=== PATIENT | female | born 1950 | race Caucasian/White ===

== ENCOUNTER 2016-07-30 22:22 | Emergency (ER) | payer MEDICARE, OTHER ==
[2016-04-26 10:45] VITALS: BMI 41.0
[~2016-07-30 22:22] MED LIST: AMBIEN10 MG PO; ATIVAN1 MG PO; BACTRIM DS TABL1 TAB PO; COZAAR100 MG PO; CREON DR 6,0001 EACH PO; DEMEROL50 MG PO; DULCOLAX10 MG/SUPP RC; ELIQUIS2.5 MG PO; FLOVENT DI50 MCG/DIS INH; GLUCOPHAGE1000 MG PO; K-DUR20 MEQ PO; LANTUS INSULIN10 ML SC; LASIX40 MG PO; LASIX80 MG PO; LEXAPRO10 MG PO; LOMOTIL TABLET1 TAB PO; MIRALAX17 GM PO; NICODERM C1 PATCH .1 TD; NITROSTAT0.4 MG SL; NORVASC10 MG PO; NOVOLOG100 U/M1 SQ; NYAMYC60 GM TP; OMNICEF300 MG PO; PANCREAZE; PEPCID20 MG PO; PEPCID40 MG PO; PLAVIX75 MG PO; PRAVACHOL20 MG PO; PRAVACHOL40 MG PO; PREVACID30 MG PO; PROVENTIL HFA6.7 GM INH; PROZAC20 MG PO; SENOKOT-S TABLE1 TAB PO; SPIRIVA18 MCG INH; ULTRAM50 MG PO; VESICARE5 MG PO; ZOFRAN4 MG PO
== END 2016-07-30 23:30 | disposition home or self-care (01) ==
LOC: D.ER 22:22
DX: S40.012A Contusion of left shoulder, initial encounter (principal); W01.0XXA Fall on same level from slipping, tripping and stumbling without subsequent striking against object, initial encounter; Y93.89 Activity, other specified; Y92.019 Unspecified place in single-family (private) house as the place of occurrence of the external cause; I48.91 Unspecified atrial fibrillation; I50.9 Heart failure, unspecified; I10 Essential (primary) hypertension; K58.9 Irritable bowel syndrome, unspecified

== ENCOUNTER 2016-08-18 16:24 | Observation (INO) | payer MEDICARE, OTHER ==
[~2016-08-18] VITALS: Ht 160 cm; Wt 101.2 kg
[2016-08-18 17:14] LABS: BASOPHILS 0.9 % (0.0-2.0); HEMATOCRIT 35.2 % (36.0-48.0); HEMOGLOBIN 10.3 g/dL (12-16); IMMATURE GRANULOCYTES 0.2 % (0-5); LYMPHOCYTES 28.4 % (15-50); MCH 19.7 pg (26.0-34.0); MCHC 29.3 g/dL (31.0-37.0); MCV 67.2 fL (80.0-100.0); MEAN PLATELET VOLUME 9.2 fL (7.4-10.4); MONOCYTES 7.8 % (2-11); NEUTROPHILS 60.7 % (40-80); PLATELET COUNT 316 10x3/uL (130-400); RBC 5.24 10x6/uL (4.00-5.40); RDW 18.7 % (11.5-14.5); WBC 6.7 10x3/uL (4.8-10.8)
[2016-08-18 17:29] LABS: ALBUMIN 3.7 g/dL (3.4-5.0); ALKALINE PHOSPHATASE 107 U/L (46-116); ALT (SGPT) 22 U/L (10-68); BILIRUBIN - TOTAL 0.31 mg/dL (0.2-1.3); CALC OSMOLALITY 279 mosm/kg (275-300); CALCIUM 9.1 mg/dL (8.5-10.1); CARBON DIOXIDE 26.6 mmol/L (21.0-32.0); CHLORIDE - SERUM 99 mmol/L (98-107); CREATININE - SERUM 0.7 mg/dL (0.6-1.3); GLUCOSE 230 mg/dL (74-106); POTASSIUM - SERUM 3.6 mmol/L (3.5-5.1); PROTEIN - SERUM 7.7 g/dL (6.4-8.2); SODIUM 137 mmol/L (136-145); UREA NITROGEN 11 mg/dL (7-18); eGFR NON AFRICAN AMERICAN 89 mL/min (90-120)
[2016-08-18 17:53] LABS: CKMB 0.5 U/L (0.0-3.6); CREATINE KINASE 39 UL (21-215)
[2016-08-18 18:02] LABS: TROPONIN-I 0.096 ng/mL (0.000-0.060)
--- NOTE | 2016-08-18 20:45 | NUR ---
PT ARRIVED TO FLOOR VIA WHEELCHAIR FROM ER ACCOMPANIED BY NURSE. TELEMETRY PLACED ON PT, NSR ON MONITOR WITH OCCASIONAL PACER SPIKES NOTED. HR 71. VSS, AFEBRILE. DENIES ANY C/O PAIN ON ARRIVAL. O2 2LPM NC, SATS 96%. PT IS AMBULATORY. GIVEN SANDWICH PLATE. NO NEEDS VOICED. ADMISSION ASSESSMENT AND HISTORY COMPLETED. MEDICATIONS RECONCILED AT THE BEDSIDE. ACCU CHECK DONE AND RESULTED 233. COVERED WITH HUMALOG PER SS ORDERS. LANTUS HELD SINCE PT WILL BE NPO AFTER MIDNIGHT. PT INSTRUCTED ON BEING NPO AFTER MIDNIGHT AND VERBALIZES UNDERSTANDING. WILL CONT TO MONITOR.
[2016-08-18 21:19] VITALS: BP 156/66; BMI 39.5
[2016-08-19 01:08] LABS: CREATINE KINASE 37 UL (21-215)
[2016-08-19 01:10] LABS: TROPONIN-I 0.096 ng/mL (0.000-0.060)
[2016-08-19 01:20] VITALS: BP 146/63
[2016-08-19 04:33] VITALS: BP 152/71
[2016-08-19 06:16] LABS: CKMB 0.3 U/L (0.0-3.6); CREATINE KINASE 27 UL (21-215)
[2016-08-19 06:19] LABS: TROPONIN-I 0.078 ng/mL (0.000-0.060)
[2016-08-19 08:02] VITALS: BP 149/78
[2016-08-19 09:28] VITALS: Ht 160 cm; Wt 101.2 kg
[2016-08-19 11:09] VITALS: BP 176/80
--- NOTE | 2016-08-19 14:37 | NUR ---
DISCHARGE INSTRUCTIONS GIVEN AND PAPERS SIGNED. D/C PTS R.FA PIV WITH CATHETER TIP FULLY INTACT. RETURNED TELEMETRY. BELONGINGS COLLECTED. PT READY TO LEAVE WITH FAMILY. NO FURTHER NEEDS. WILL CTM.
--- NOTE | 2016-09-30 14:54 | DS ---
PATIENT:LENNIE VILLEGAS :50 MEDICAL RECORD: [id number] DISCHARGE SUMMARY ADMISSION DATE: 08/18/16 DISCHARGE DATE: 08/19/16 DATE OF ADMISSION: 08/18/2016 DATE OF DISCHARGE: 08/19/2016 ADMISSION DIAGNOSIS: Unstable angina. SECONDARY DIAGNOSES: 1. Coronary artery disease. 2. Hypertension. 3. Paroxysmal atrial fibrillation. HOSPITAL COURSE: Lennie is a 66-year-old woman, who presented a week prior with unstable angina. She underwent PTCA and stent in the right coronary artery. She returned having chest discomfort. She has had a lot of chronic discomfort after having multiple interventions. Her cath films were reviewed. Her pain resolved when she is placed back on her nitrates and Ranexa. After observation for 24 hours, she had no further pain. She is deemed stable discharge to home. MEDICATIONS ON DISCHARGE: Include: 1. Pravachol 40 mg a day. 2. Plavix 75 mg day. 3. Ranexa 500 mg twice daily. 4. Amlodipine 10 mg daily. 5. Losartan 100 mg daily. FOLLOWUP: We will see her back in clinic in approximately 2-3 weeks. TRANSINT:[id number] Voice Confirmation ID: [id number] DOCUMENT ID: [id number] LOVE TOLEDO M.D. at 1454 CC: [id number] DICTATION DATE: 09/29/16 0914 SURVEILLANCE CAMERA TECHNICIAN: 09/30/16 0058 DIS IN 08/19/16 [place] [address]
== END 2016-08-19 14:39 | disposition home or self-care (01) ==
LOC: D.ER 16:24 → OBSVTIME 19:46 → D.M2 19:46
PROVIDERS: Emergency Medicine; ADMIT Internal Medicine Cardiovascular Disease
DX: I25.110 Atherosclerotic heart disease of native coronary artery with unstable angina pectoris (principal); Z95.5 Presence of coronary angioplasty implant and graft; E11.40 Type 2 diabetes mellitus with diabetic neuropathy, unspecified; K76.0 Fatty (change of) liver, not elsewhere classified; I11.0 Hypertensive heart disease with heart failure; I50.9 Heart failure, unspecified; I48.0 Paroxysmal atrial fibrillation; E78.5 Hyperlipidemia, unspecified; J44.9 Chronic obstructive pulmonary disease, unspecified; Z95.0 Presence of cardiac pacemaker; Z72.0 Tobacco use

== ENCOUNTER 2016-11-04 16:08 | Inpatient (IN) | payer MEDICARE, OTHER ==
[~2016-11-04] VITALS: Ht 160 cm; Wt 103.9 kg
--- NOTE | ~2016-11-04 | CN ---
PATIENT NAME:CHANEL CARSON MEDICAL RECORD: [id number] : 50 LOCATION:D.MS [id number] ADMIT DATE: 11/04/16 ACCOUNT: [id number] CONSULTING PHYSICIAN: WOLF SERRANO MD REFERRING PHYSICIAN: MONTANA PUGA DO DATE OF CONSULTATION: 11/05/2016 CONSULT REQUESTING PHYSICIAN: [place] Puga DO. REASON FOR CONSULTATION: Pneumonia, left lower lobe; acute hypoxic respiratory failure and pleurisy. HISTORY OF PRESENT ILLNESS: Ms. Carson is a 66-year-old female who has a history of COPD and obstructive sleep apnea. According to the patient, she is sick since . She is coughing, she is wheezing, she has shortness of breath, she has left pleuritic type of chest pain. She also hears herself wheezing. She has shortness of breath with mild exertion. There was also some night sweating. REVIEW OF SYSTEMS: Mainly in the history of present illness. PAST MEDICAL HISTORY: 1. COPD. 2. Obstructive sleep apnea. 3. Diabetes mellitus. 4. Diabetic neuropathy. 5. Chronic backache. 6. History of psoriasis. 7. History of cardiac arrhythmia. 8. B12 deficiency. 9. Congestive heart failure. 10. Hypothyroidism. 11. History of chronic systolic hypertension. 12. Hyperlipidemia. ALLERGIES: SHE IS ALLERGIC TO CODEINE, WHICH CAUSE HER BLOOD PRESSURE LOW. SHE IS ALSO ALLERGIC TO LOPRESSOR, PENICILLIN AND TOPAMAX. PRESENT MEDICATIONS: On [employer] is reviewed. PERSONAL AND SOCIAL HISTORY: The patient is still an everyday smoker. She is a nondrinker. FAMILY HISTORY: Significant for heart diseases. PHYSICAL EXAMINATION: GENERAL: Now, the patient is lying comfortably. She is not in acute distress. VITAL SIGNS: The blood pressure is 113/71, pulse is 81, respirations 17, temperature 99.3 and SpO2 is 94% on BiPAP. HEENT: Conjunctivae are pink, sclerae nonicteric. NECK: Supple. No JVD. CHEST: The chest excursion is minimal on both sides. There is wheeze on forceful expiration. There are crackle at the left base. HEART: Rhythm regular, normal sound, no murmur. ABDOMEN: Soft. Bowel sounds present. No hepatosplenomegaly. CONSULT REPORT [id number] CHANEL CARSON RECTAL: Deferred. EXTREMITIES: No cyanosis, no clubbing. There is no pedal edema. SKIN: Warm, normal turgor. CENTRAL NERVOUS SYSTEM: The patient is a bit agitated; otherwise, there is no obvious cranial nerve abnormality. The gait was not tested. CHEST RADIOGRAPH: There are infiltrate in left mid lung and left lower lobe. LABORATORY DATA: CBC: The WBC is 15.1, hemoglobin 13.3, hematocrit 41.1 and the platelet count is 151. Chemistry: Sodium is 137, potassium 3.4, BUN is 8, creatinine is 0.6 and glucose is 251. IMPRESSION: 1. Acute hypoxic respiratory failure secondary to pneumonia. 2. Acute exacerbation of chronic obstructive pulmonary disease. 3. Pneumonia, left mid lung, left lower lobe consistent with community-acquired pneumonia. 4. Obstructive sleep apnea. 5. Pleurisy. 6. Chronic backache. 7. Leukocytosis. 8. Tobacco dependence syndrome. RECOMMENDATION: 1. Albuterol and ipratropium nebulizer. Start on Brovana and budesonide nebulizer. 2. Methylprednisolone IV. 3. Add Rocephin. 4. Followup labs and chest radiograph in the morning. 5. Continue BiPAP at the present settings. 6. Start her on nicotine patch. Dr. Puga, once again, thank you for involving me in the care of Ms. Carson. TRANSINT:[id number] Voice Confirmation ID: [id number] DOCUMENT ID: [id number] WOLF SERRANO MD CC: MONTANA PUGA DO [id number] DICTATION DATE: 11/05/16 143 ADMINISTRATIVE ANALYST: 11/05/162101 ADM IN [facility] [address] [place] [address]
--- NOTE | 2016-11-04 16:57 | NUR ---
REPORTS SHE DOESN'T TAKE MOST OF HER MEDICATIONS ANY MORE BECAUSE OF THE WAY THEY MAKE HER FEEL BUT COULDN'T GIVE AN ACCURATE ACCOUNT OF THE ONES SHE STILL TAKES OR HOW HER MEDICATIONS MAKE HER FEEL
[2016-11-04 17:51] VITALS: Ht 160 cm; Wt 103.9 kg
[2016-11-04 18:29] LABS: BASOPHILS 0.1 % (0-2); EOSINOPHILS 0 % (0-7); HEMATOCRIT 41.1 % (36.0-48.0); HEMOGLOBIN 13.3 g/dL (12-16); IMMATURE GRANULOCYTES 0.6 % (0-5); LYMPHOCYTES 8.5 % (15-50); MCH 26.4 pg (26.0-34.0); MCHC 32.4 g/dL (31.0-37.0); MCV 81.5 fL (80.0-100.0); MEAN PLATELET VOLUME 9.6 fL (7.4-10.4); MONOCYTES 9.5 % (2-11); NEUTROPHILS 81.3 % (40-80); RBC 5.04 10x6/uL (4.00-5.40); WBC 15.1 10x3/uL (4.8-10.8)
[2016-11-04 18:48] LABS: PLATELET COUNT 151 10x3/uL (130-400)
[2016-11-04 18:53] LABS: ALBUMIN 3.3 g/dL (3.4-5.0); ALKALINE PHOSPHATASE 92 U/L (46-116); ALT (SGPT) 25 U/L (10-68); BILIRUBIN - TOTAL 0.82 mg/dL (0.2-1.3); CALC OSMOLALITY 271 mosm/kg (275-300); CALCIUM 9.1 mg/dL (8.5-10.1); CARBON DIOXIDE 24.9 mmol/L (21.0-32.0); CHLORIDE - SERUM 95 mmol/L (98-107); CREATININE - SERUM 0.6 mg/dL (0.6-1.3); POTASSIUM - SERUM 4.4 mmol/L (3.5-5.1); PROTEIN - SERUM 7.2 g/dL (6.4-8.2); SODIUM 131 mmol/L (136-145); THYROID STIMULATING HORMONE 0.75 uIU/mL (0.36-3.74); UREA NITROGEN 8 mg/dL (7-18); eGFR NON AFRICAN AMERICAN > 90 mL/min (90-120)
[2016-11-04 18:54] LABS: GLUCOSE 300 mg/dL (74-106)
[2016-11-04 20:00] VITALS: BP 153/65
--- NOTE | 2016-11-04 20:17 | NUR ---
PATIENT RESTING IN BED WITH NO VISIBLE SIGNS OF DISTRESS. CHECKED PATIENT'S BLOOD GLUCOSE, RESULTS 302. NOTIFIED HALEY CHAKRABORTY OF BLOOD GLUCOSE LEVEL. PATIENT RESTING IN BED AND DENIES NEEDS AT THIS TIME. BED IN LOWEST POSITION AND CALL LIGHT WITHIN REACH. ENCOURAGED THE PATIENT TO CALL IF SHE HAS FURTHER NEEDS.
--- NOTE | 2016-11-04 20:50 | NUR ---
REC'D. ENTERED RM.SCREAMING OH!!! ASKED WHAT"S WRONG STATES I"VE GOT PNEUNOMIA.WILL CONTINUE TO MONITOR RESP. STATUS AND FOLLOW CURRENT PLAN OF CARE.
[2016-11-05] VITALS: BP 143/56
[2016-11-05 04:00] VITALS: BP 126/57
--- NOTE | 2016-11-05 07:40 | NUR ---
CPAP ON, NO DISTRESS NOTED, BREATHING EVEN UNLABORED, CALL LIGHT IN REACH, BED LOWEST POSITION, WILL CONTINUE TO MONITOR
[2016-11-05 09:01] LABS: BASOPHILS 0.1 % (0-2); EOSINOPHILS 0 % (0-7); HEMATOCRIT 40.1 % (36.0-48.0); HEMOGLOBIN 12.8 g/dL (12-16); IMMATURE GRANULOCYTES 0.4 % (0-5); LYMPHOCYTES 11.9 % (15-50); MCH 26.7 pg (26.0-34.0); MCHC 31.9 g/dL (31.0-37.0); MCV 83.5 fL (80.0-100.0); MONOCYTES 6.6 % (2-11); PLATELET COUNT 131 10x3/uL (130-400); WBC 11.3 10x3/uL (4.8-10.8)
--- NOTE | 2016-11-05 09:07 | HP ---
PATIENT: LENNIE VILLEGAS MEDICAL RECORD: [id number] ACCOUNT: [id number] LOCATION:D.MS [id number] : 50 ADMISSION DATE: 11/04/16 HISTORY AND PHYSICAL EXAMINATION HISTORY OF PRESENT ILLNESS: Lennie is a 66-year-old female who came to the office today for routine lab test and stated that she was feeling awful, short of breath, back pain, fever. In the course of evaluating her, she did have leukocytosis with left upper lobe infiltrate and diagnosis of pneumonia. She will be hospitalized for pneumonia, fever and IV antibiotics. Her HPI, she states she started feeling bad yesterday, prior to that has been doing okay. She has a history of COPD and uses home albuterol nebulizers. She has been hesitant to use steroids in the past as she states one time she used inhaled steroids and had pneumonia from that. She does have a history of coronary artery disease and stents in the past. She has a history of obstructive sleep apnea, diabetes with diabetic neuropathy, chronic back pain. She has a history of psoriasis, cardiac arrhythmia, B12 deficiency, hypothyroidism, history of congestive heart failure, chronic systolic hypertension, hyperlipidemia. ALLERGIES: CODEINE, WHICH CAUSED A DROP IN BLOOD PRESSURE, LOPRESSOR, PENICILLIN AND TOPAMAX. HOME MEDICATIONS: Include albuterol updrafts, amlodipine 10 mg daily, clopidogrel 75 mg daily, which has been on hold for several days due to her being set up for an EGD next week with GI, escitalopram 10 mg daily, Pepcid 40 mg daily, furosemide 80 mg daily, hydrocodone p.r.n., lansoprazole 30 mg daily, Lantus 30 units daily, levothyroxine 50 mcg daily, lorazepam 1 mg b.i.d. p.r.n., losartan 100 mg daily, ____ 2 tablets b.i.d., NovoLog p.r.n. sliding scale, pravastatin 40 mg daily, sotalol 80 mg b.i.d., Aldactone 50 mg daily, Ambien p.r.n. at bedtime 10 mg. SOCIAL HISTORY: She does unfortunately still smoke cigarettes. Denies any alcohol and heavy use. No illicit drug use. FAMILY HISTORY: Diabetes and heart disease in father. Mother with hypertension and mother also had adenoid cystic carcinoma. REVIEW OF SYSTEMS: HEENT: No visual or auditory changes, sore throat, rhinorrhea, dysphagia. CARDIOPULMONARY: She has had some pain in the left lateral chest area with deep inspiration. Left upper back pain. She has been a little short of breath on exertion, occasional cough. CONSTITUTIONAL: She has had a fever and some chills. GASTROINTESTINAL: Denies any nausea, vomiting, or diarrhea. Currently, does have chronic loose stools due to IBS and diabetic medication. GENITOURINARY: Denies any hematuria or dysuria. MUSCULOSKELETAL: Pain in her back, chronically in the low back, now in the upper back that has been bad for several days. PHYSICAL EXAMINATION: VITAL SIGNS: Her temperature was 102.3, respirations 20, pulse 80, O2 sat 94% on room air, blood pressure 122/60. HEENT: PERRLA, EOMI. Pharynx was clear. NECK: Supple. No JVD or adenopathy. HEART: Had an S1, S2. No murmurs or rubs. HISTORY AND PHYSICAL [id number] LENNIE VILLEGAS LUNGS: Had some rhonchi in the left mid and base with a few expiratory wheezes anteriorly. ABDOMEN: Soft, nontender, nondistended. EXTREMITIES: Had a trace nonpitting edema around the ankles. NEUROLOGICAL: Grossly intact. LABORATORY DATA: Her white count was 14.8 with H&H of 13 and 42. Chest x-ray showed left lobe infiltrate. ASSESSMENT AND PLAN: Pneumonia with history of chronic obstructive pulmonary disease. We are going to admit the patient, start on IV Levaquin. Blood cultures will be obtained as well as a D-dimer. Updraft treatments, restart home medications, diabetic meds with parameters. Consult pulmonary. Continue to follow clinically. TRANSINT:[id number] Voice Confirmation ID: [id number] DOCUMENT ID: [id number] MARÍA PUGA DO at 0907 CC: [id number] DICTATION DATE: 11/04/16 162 PAVING AND SURFACING LABOURER: 11/04/162004 ADM IN [facility] [address] [place] [id number]
[2016-11-05 09:15] LABS: CALCIUM 9.4 mg/dL (8.5-10.1); CARBON DIOXIDE 27.6 mmol/L (21.0-32.0); CHLORIDE - SERUM 102 mmol/L (98-107); CREATININE - SERUM 0.6 mg/dL (0.6-1.3); SODIUM 137 mmol/L (136-145); UREA NITROGEN 8 mg/dL (7-18); eGFR NON AFRICAN AMERICAN > 90 mL/min (90-120)
[2016-11-05 09:21] LABS: CALC OSMOLALITY 279 mosm/kg (275-300); GLUCOSE 251 mg/dL (74-106); POTASSIUM - SERUM 3.4 mmol/L (3.5-5.1)
[2016-11-05 09:57] VITALS: BP 113/71
--- NOTE | 2016-11-05 11:41 | NUR ---
REFUSES ALL MEDICATIONS EXCEPT PAIN MEDS, STATES SHE HAS TO PAIN OUT OF POCKET FOR IT AND SHE'S NOT TAKING IT, SHE ALSO STATED "THE REAL ESTATE ACCOUNTANT JOSE A WAS MEAN AND SAID "OH GOD!" AND COMPLAINING" I HAD THE REAL ESTATE ACCOUNTANT'S SWITCH A PATIENTS SO SHE HOPEFULLY WOULD BE HAPPIER WITH THE OTHER REAL ESTATE ACCOUNTANT. I FLUSHED HER IV EARLIER, TOLD HER IT WAS SAYING OCCLUDED ON PUMP BUT IT WAS JUST POSITIONAL, THEN SHE TOLD HER SON IT WASN'T WORKING AND WE WERE STILL USING IT, I CORRECTED HER AND SHE TOLD ME I WAS LYING. WILL CONTINUE TO MONITOR
[2016-11-05 12:31] VITALS: BP 145/75
[2016-11-05 16:50] VITALS: BP 136/66
[2016-11-05 20:00] VITALS: BP 142/69
--- NOTE | 2016-11-05 22:09 | NUR ---
REC'D.ASSISTED TO BATHRM.NABOR WELL. IN MUCH BETTER MOOD THIS PM WILL CONTINUE TO MONITOR FOR ANY CHGES. AND FOLLOW CURRENT PLAN OF CARE.REFUSES ORAL MEDS [facility] CHARGED ME SEVEN THOUSAND DOLLARS FOR MEDS LAST TIME I WAS HERE. WILL CONTINUE TO MONITOR FOR ANY CHGES. AND FOLLOW CURRENT PLAN OF CARE.
--- NOTE | 2016-11-06 02:45 | NUR ---
PT IS RESTING QUIET WITH BIPAP IN PLACE AND NO DISTRESS NOTED. BED IS LOW, RAILS UP X'S 2 WITH THE CALL LIGHT AT HAND.
[2016-11-06 04:00] VITALS: BP 144/77
--- NOTE | 2016-11-06 05:37 | NUR ---
UPON THIS NURSE ADMINISTERING AM MEDICATION TO PT SHE REFUSED TO TAKE PO MEDICATION STATING " I'M NOT TAKING THOSE PILLS. BECAUSE THEY ARE CHARGING ME TO MUCH FOR THEM. AND I HAVE TO TOLD THEM NOT TO BRING THEM IN TO ME CAUSE AM NOT TAKING THEM. " PT WAS C/O PAIN AROUND RIG CAGE RATING 9/10 ON PAIN SCALE. THIS NURSE TRIED TO EXPLAIN TO PT THE ABOUT THE IV MEDICATION THAT SHE WAS RECEIVING WHICH WAS SOLU-MEDROL 40 MG AND DEMEROL 25 MG BUT PT THEN BEGIN TO YELL AT THIS NURSE STATING I ASKED YOU WHEN THE LAST TIME THAT I HAD MEDICATION AND THIS NURSE THEN ASK PT WHICH MEDICATION SHE WAS SPEAKING OF. THEN PT STATED THAT THE STAFF IS TRYING TO MAKE HER CRAZY IN THE HEAD. BUT YOU ARE THE ONE'S THAT CRAZY AND AM GOING TO GIVE IT RIGHT BACK TO Y'ALL. PT WAS ALSO FOOLING AROUND WITH IV SITE. INFORMED PT IF SHE CONTINUE TO SCRATCH AT SITE THAT HE IV MAY BECOME INFILTRATED AND SHE WILL THEN NEED TO BE RESITED.
[2016-11-06 05:39] LABS: BASOPHILS 0.1 % (0-2); EOSINOPHILS 0 % (0-7); HEMOGLOBIN 12.8 g/dL (12-16); IMMATURE GRANULOCYTES 0.1 % (0-5); LYMPHOCYTES 10.3 % (15-50); MCV 84.4 fL (80.0-100.0); MEAN PLATELET VOLUME 9.7 fL (7.4-10.4); MONOCYTES 4.7 % (2-11); NEUTROPHILS 84.8 % (40-80); PLATELET COUNT 156 10x3/uL (130-400); RBC 4.74 10x6/uL (4.00-5.40); WBC 8.7 10x3/uL (4.8-10.8)
[2016-11-06 06:04] LABS: ALBUMIN 2.6 g/dL (3.4-5.0); ALKALINE PHOSPHATASE 91 U/L (46-116); ALT (SGPT) 21 U/L (10-68); CALCIUM 9.5 mg/dL (8.5-10.1); CARBON DIOXIDE 27.5 mmol/L (21.0-32.0); CHLORIDE - SERUM 101 mmol/L (98-107); CREATININE - SERUM 0.7 mg/dL (0.6-1.3); MAGNESIUM - SERUM 1.9 mg/dL (1.8-2.4); POTASSIUM - SERUM 3.9 mmol/L (3.5-5.1); SODIUM 136 mmol/L (136-145); eGFR NON AFRICAN AMERICAN 89 mL/min (90-120)
[2016-11-06 06:05] LABS: CALC OSMOLALITY 285 mosm/kg (275-300); GLUCOSE 346 mg/dL (74-106); UREA NITROGEN 12 mg/dL (7-18)
[2016-11-06 07:00] VITALS: BP 181/89
[2016-11-06 12:32] VITALS: BP 176/84
[2016-11-06 14:57] VITALS: BP 153/66
--- NOTE | 2016-11-06 15:34 | NUR ---
IV TO RIGHT HAND STARTED BEEPING OCCLUDED. TRIED TO FLUSH, PATIENT YELLED. D/C IV WITH CATH INTACT. LUIS MCDANIEL STARTED IV TO RIGHT FOREARM 20G X'S 1 ATTEMPT.
[2016-11-06 20:00] VITALS: BP 111/75
--- NOTE | 2016-11-06 20:42 | NUR ---
PATIENT RESTING IN BED WITH FLOYD RICHARDSON AT BEDSIDE CHECKING VITALS. CHECKED PATIENT'S BLOOD GLUCOSE, RESULTS 416. NOTIFIED HALEY EASTON. PATIENT DENIES NEEDS AT THIS TIME. BED IN LOWEST POSITION AND CALL LIGHT WITHIN REACH. ENCOURAGED THE PATIENT TO CALL IF SHE HAS NEEDS.
[2016-11-07] VITALS: BP 122/80
[2016-11-07 04:00] VITALS: BP 125/77
[2016-11-07 04:51] LABS: BASOPHILS 0 % (0-2); EOSINOPHILS 0 % (0-7); HEMATOCRIT 37.4 % (36.0-48.0); HEMOGLOBIN 12.4 g/dL (12-16); IMMATURE GRANULOCYTES 0.5 % (0-5); LYMPHOCYTES 9.9 % (15-50); MCH 27.4 pg (26.0-34.0); MCHC 33.2 g/dL (31.0-37.0); MCV 82.6 fL (80.0-100.0); MEAN PLATELET VOLUME 9.9 fL (7.4-10.4); MONOCYTES 3.8 % (2-11); NEUTROPHILS 85.8 % (40-80); PLATELET COUNT 170 10x3/uL (130-400); RBC 4.53 10x6/uL (4.00-5.40); WBC 7.6 10x3/uL (4.8-10.8)
[2016-11-07 05:15] LABS: CALCIUM 9.4 mg/dL (8.5-10.1); CARBON DIOXIDE 29.8 mmol/L (21.0-32.0); CHLORIDE - SERUM 102 mmol/L (98-107); PHOSPHOROUS 3.5 mg/dL (2.5-4.9); SODIUM 139 mmol/L (136-145); UREA NITROGEN 15 mg/dL (7-18)
[2016-11-07 05:16] LABS: CALC OSMOLALITY 287 mosm/kg (275-300); CREATININE - SERUM 0.5 mg/dL (0.6-1.3); GLUCOSE 261 mg/dL (74-106); eGFR NON AFRICAN AMERICAN > 90 mL/min (90-120)
[2016-11-07] MEDS ORDERED: BETAPACE 80 MG80 MG PO (07:05)
[2016-11-07] MEDS ORDERED: ALDACTONE25 MG PO (07:05)
[2016-11-07] MEDS ORDERED: LEVAQUIN750 MG PO (07:06)
[2016-11-07] MEDS ORDERED: SYNTHROID50 MCG PO (07:06)
[2016-11-07] MEDS ORDERED: STERAPRED 5MG 65 M1 PO (07:07)
--- NOTE | 2016-11-07 07:57 | NUR ---
PATIENT IS GETTING DRESSED, STATED SHE IS READY TO GO HOME. SHE JUST FINISHED SHAVING AT THE SINK INDEPENDENTLY. NO SIGNS OF DISTRESS NOTED. ROOM AIR.
[2016-11-07 08:23] VITALS: BP 173/88
--- NOTE | 2016-11-07 09:55 | NUR ---
Patient Name: CHANEL VILLEGAS Admission Status: Urgent Accout number: [id number] Admission Date: 11-04-2016 : 1950 Admission Diagnosis: Attending: ROCHELLE Current LOS: 3 Anticipated DC Date: 11-07-2016 Planned Disposition: Home Primary Insurance: MEDICARE A & B Discharge Planning Comments: CM MET WITH PATIENT REGARDING D/C NEEDS AND PLANS. PATIENT STATED HER SONS LIVE WITH HER AND THEY HELP HER DAILY. PATIENTS SON IS DRIVING HER HOME AND THERE ARE NO STEPS OR STAIRS. PATIENTS PCP IS DR. PUGA AND PHARMACY IS [facility]. ON [address] PATIENT HAS A WALKER, AND GLUCOMETER AT HOME. PATIENT STATED SHE CHECKS WHEN SHE WANTS TO AND SON STATED SHE ALWAYS CHECKS DAILY. PATIENT REFUSED HOME HEALTH AND HAD NO OTHER NEEDS FOR DISCHARGE. CM WILL CONTINUE TO FOLLOW PATIENT WITH D/C NEEDS AND PLANS. PCP DR. PUGA [facility]. ON [address] [phone] RENEE VILLEGAS (SON) [phone] [employer] Operator: Amanda Peraza Is the patient Alert and Oriented? Yes 0 * How many steps to enter\exit or inside your home? 0 0 * PCP DR. AKHTAR 0 * Pharmacy [facility]. ON [address] 0 * Preadmission Environment Home with Family 0 * ADLs Independent 0 * Equipment Glucometer Walker 0 * List name and contact numbers for known caregivers / representatives who currently or will assist patient after discharge: RENEE VILLEGAS (SON) [phone] 0 * Community resources currently utilized None 0 * Additional services required to return to the preadmission environment? Yes 0 * Can the patient safely return to the preadmission environment? Yes 0 * Has this patient been hospitalized within the prior 30 days at any hospital? No 0 Grand Total: 0
--- NOTE | 2016-11-07 11:00 | NUR ---
DISCHARGE INSTRUCTIONS COMPLETED WITH PATIENT AND PATIENT'S SON. D/C IV WITH CATHETER INTACT. PATIENT STATED SHE DOES NOT TAKE BETAPACE OR ALDACTONE. TOLD HER TO DISCUSS IT WITH . SHE STATED SHE DOES NOT LIKE LEVAQUIN OR PREDNISON DOSE PACK. EXPLAINED TO PATIENT THE IMPORTANCE OF TAKING ANTIBIOTICS AND TAPING THE STERIODS. EDUCATED PATIENT AND PATIENT'S SON ON CHF AND TAKING DIURETICS, PATIENT VERBALIZED UNDERSTANDING AND DENIES QUESTIONS.
--- NOTE | 2016-11-07 11:37 | NUR ---
TOOK PATIENT OUT TO HER VEHICLE VIA WHEELCHAIR.
== END 2016-11-07 11:37 | disposition home or self-care (01) | DRG 189 ==
LOC: D.MS 16:08
PROVIDERS: ADMIT Family Medicine
DX: J96.01 Acute respiratory failure with hypoxia (principal); J18.9 Pneumonia, unspecified organism; J44.0 Chronic obstructive pulmonary disease with (acute) lower respiratory infection; J44.1 Chronic obstructive pulmonary disease with (acute) exacerbation; F17.203 Nicotine dependence unspecified, with withdrawal; E11.40 Type 2 diabetes mellitus with diabetic neuropathy, unspecified; I11.0 Hypertensive heart disease with heart failure; I50.9 Heart failure, unspecified; Z95.0 Presence of cardiac pacemaker; G47.33 Obstructive sleep apnea (adult) (pediatric); F51.9 Sleep disorder not due to a substance or known physiological condition, unspecified; E53.8 Deficiency of other specified B group vitamins; E78.5 Hyperlipidemia, unspecified

== ENCOUNTER → 2016-12-30 09:58 | Outpatient (CLI) | payer MEDICARE, OTHER ==
[~2016-12-30 09:58] MED LIST changes: +ALDACTONE25 MG PO; +BETAPACE 80 MG80 MG PO; +LEVAQUIN750 MG PO; +STERAPRED 5MG 65 M1 PO; +SYNTHROID50 MCG PO
== END | disposition home or self-care (01) ==
LOC: D.US 09:58
DX: R10.9 Unspecified abdominal pain (principal)

== ENCOUNTER → 2017-01-10 08:51 | Day surgery (SDC) | payer MEDICARE, OTHER ==
[~2017-01-10] VITALS: Ht 160 cm; Wt 102.3 kg
[2017-01-10 09:21] VITALS: BP 131/75; Ht 160 cm; Wt 102.3 kg
--- NOTE | 2017-01-10 10:20 | NUR ---
ESOPHAGUS DILATED TO 54 CM WITH BALLOON
--- NOTE | 2017-01-10 11:20 | NUR ---
1100 STATES FEELS NAUSEATED & DIZZY AFTER SIPPING SOME JUICE. EMESIS COLLECTION BAG GIVEN TO PT. ADVISED TO REST & NOT DRINK @ THIS TIME. Trevon LAYNE R.N. 1115 UP TO BATHROOM WITH ASSISTANCE. VOIDED. ASSISTED BACK TO BED BY Zoya AYALA R.N.. Trevon LAYNE R.N.
[2017-01-10 11:31] LABS: BASOPHILS 0.5 % (0-2); EOSINOPHILS 2.6 % (0-7); HEMATOCRIT 43.6 % (36.0-48.0); HEMOGLOBIN 14.5 g/dL (12-16); IMMATURE GRANULOCYTES 0.2 % (0-5); LYMPHOCYTES 32.4 % (15-50); MCH 30.1 pg (26.0-34.0); MCHC 33.3 g/dL (31.0-37.0); MCV 90.5 fL (80.0-100.0); MEAN PLATELET VOLUME 10.3 fL (7.4-10.4); MONOCYTES 10.5 % (2-11); NEUTROPHILS 53.8 % (40-80); PLATELET COUNT 200 10x3/uL (130-400); RBC 4.82 10x6/uL (4.00-5.40); RDW 14.2 % (11.5-14.5); WBC 6.1 10x3/uL (4.8-10.8)
--- NOTE | 2017-01-10 13:03 | NUR ---
1145 IV DC'ED WITH CATH INTACT & 150ML LTC. ASSISTED WITH DRESSING. UP TO BATHROOM. VOIDED URINE WITHOUT DIFFICULTY. Trevon LAYNE R.N. 1155 DRESSED, AWAKE & ALERT. SITTING UP IN CHAIR @ BEDSIDE. GIVEN MED REC., RTC APPT., & [facility] D/C INSTRUCTION SHEET POST ENDOSCOPIC PROCEDURES. PT VOICED UNDERSTANDING. TO PRIVATE CAR PER WHEELCHAIR BY VOLUNTEER. HOME WITH SON. EVERETT Garcia
[2017-01-11 09:16] LABS: CALC OSMOLALITY 287 mosm/kg (275-300); CALCIUM 9.5 mg/dL (8.5-10.1); CARBON DIOXIDE 23.8 mmol/L (21.0-32.0); CHLORIDE - SERUM 105 mmol/L (98-107); CREATININE - SERUM 0.8 mg/dL (0.6-1.3); POTASSIUM - SERUM 4.5 mmol/L (3.5-5.1); SODIUM 141 mmol/L (136-145); UREA NITROGEN 15 mg/dL (7-18); eGFR NON AFRICAN AMERICAN 76 mL/min (90-120)
[2017-01-11 09:18] LABS: GLUCOSE 207 mg/dL (74-106)
== END | disposition home or self-care (01) ==
LOC: D.OPS 08:51
PROVIDERS: Anesthesiology
DX: K31.7 Polyp of stomach and duodenum (principal); K29.80 Duodenitis without bleeding; K29.50 Unspecified chronic gastritis without bleeding; Z88.5 Allergy status to narcotic agent; Z88.0 Allergy status to penicillin; Z88.8 Allergy status to other drugs, medicaments and biological substances; Z01.812 Encounter for preprocedural laboratory examination

== ENCOUNTER → 2017-05-17 13:48 | Outpatient (CLI) | payer MEDICARE, OTHER ==
[2017-01-10 09:21] VITALS: BMI 39.9
== END | disposition home or self-care (01) ==
LOC: D.MAMMO 10:15
DX: Z12.31 Encounter for screening mammogram for malignant neoplasm of breast (principal)

== ENCOUNTER → 2017-07-31 18:35 | Outpatient (CLI) | payer MEDICARE, OTHER ==
[2017-01-10 09:21] VITALS: BMI 39.9
== END | disposition home or self-care (01) ==
LOC: D.LABREF 18:35
DX: N39.0 Urinary tract infection, site not specified (principal); R31.9 Hematuria, unspecified

== ENCOUNTER → 2017-09-06 10:09 | Outpatient (CLI) | payer MEDICARE, OTHER ==
[2017-01-10 09:21] VITALS: BMI 39.9
[~2017-09-06 10:09] MED LIST changes: +CREON (PANCRELI1 CAP PO; +IPRAT-ALBUT 0.5-3 ML UPD; +LANTUS SOL100 UNIT/1 SC; +LIPITOR40 MG PO
== END | disposition home or self-care (01) ==
LOC: D.CT 10:09
DX: R51 Headache (principal)

== ENCOUNTER → 2017-10-03 13:23 | Outpatient (CLI) | payer MEDICARE, OTHER ==
[2017-01-10 09:21] VITALS: BMI 39.9
== END | disposition home or self-care (01) ==
LOC: D.US 13:23
DX: H53.133 Sudden visual loss, bilateral (principal)

== ENCOUNTER → 2017-10-06 13:55 | Outpatient (CLI) | payer MEDICARE, OTHER ==
[2017-01-10 09:21] VITALS: BMI 39.9
== END | disposition home or self-care (01) ==
LOC: D.CT 13:55
DX: I65.23 Occlusion and stenosis of bilateral carotid arteries (principal)

== ENCOUNTER 2017-10-18 05:55 | Day surgery (SDC) | payer MEDICARE, OTHER ==
[2017-10-17 09:47] LABS: HEMOGLOBIN 14.1 g/dL (12-16); MCH 28.2 pg (26.0-34.0); MCHC 32.8 g/dL (31.0-37.0); RDW 14.8 % (11.5-14.5); WBC 7.5 10x3/uL (4.8-10.8)
[2017-10-17 10:31] LABS: CALC OSMOLALITY 287 mosm/kg (275-300); CALCIUM 8.8 mg/dL (8.5-10.1); CARBON DIOXIDE 26.3 mmol/L (21.0-32.0); CHLORIDE - SERUM 100 mmol/L (98-107); CREATININE - SERUM 0.8 mg/dL (0.6-1.3); GLUCOSE 399 mg/dL (74-106); POTASSIUM - SERUM 4.2 mmol/L (3.5-5.1); SODIUM 136 mmol/L (136-145); UREA NITROGEN 10 mg/dL (7-18); eGFR NON AFRICAN AMERICAN 76 mL/min (90-120)
[~2017-10-18] VITALS: Ht 162.6 cm; Wt 99.8 kg
--- NOTE | ~2017-10-18 | OP ---
PATIENT NAME: CHANEL VILLEGAS MEDICAL RECORD: [id number] :50 LOCATION:D.OPS ADMISSION DATE: SURGEON: RG DEVI MD DATE OF OPERATION: 10/18/2017 SURGEON: Rg Devi MD ANESTHESIA: MAC by Jarvis Tony CRNA. PREOPERATIVE DIAGNOSIS: Urge urinary incontinence. PROCEDURES: Cystoscopy and intravesical Botox injection 100 units. FINDINGS: Single ureteral orifices bilaterally. No bladder tumors. BLOOD LOSS: None. CLINICAL HISTORY: This is a 67-year-old female, who has urge urinary incontinence, which is refractory to oral medical treatment. She has severe and extensive medical conditions including COPD and cardiac disease. We obtained cardiac and pulmonary clearance. She is also on Plavix, which was held for a couple days prior to the procedure. Her objective c developer requested that we give her nebulizer treatments before and after the procedure. She is allergic to IMDUR, PENICILLIN, CHLORHEXIDINE, BYETTA, METOPROLOL, TOPAMAX, CODEINE, MACROBID, DILTIAZEM. We gave her Levaquin transcription to the OR. DESCRIPTION OF PROCEDURE: The patient was given IV sedation. She was then placed in the dorsal lithotomy position and prepped and draped. Cystoscopy was performed and no bladder tumors were seen. We spared the ureteral orifices and the trigone. Ten different locations were injected with 1 cc of the Botox solution with each cc containing 10 units of Botox. Once all the injections were done, the bladder was emptied through the scope and the scope was removed. The entire injection procedure took about 2 minutes. The patient was then brought to the recovery room where she will be given her nebulizer treatment. I will see her in followup in 2 weeks' time to check on her voiding symptoms. TRANSINT:[id number] Voice Confirmation ID: [id number] DOCUMENT ID: [id number] RG DEVI MD at 0803 CC: [id number] DICTATION DATE: 10/18/17908 INTERNAL REVIEW AND AUDIT COMPLIANCE: 10/18/17 1318 [facility] 10/18/17 [place] [address]
[2017-10-18 06:44] VITALS: Ht 162.6 cm; Wt 99.8 kg
== END 2017-10-18 10:36 | disposition home or self-care (01) ==
LOC: D.OPS 05:55 → D.PAN 08:00 → D.OPS 08:00
PROVIDERS: Anesthesiology
DX: N39.41 Urge incontinence (principal); J44.9 Chronic obstructive pulmonary disease, unspecified; I51.9 Heart disease, unspecified; Z79.02 Long term (current) use of antithrombotics/antiplatelets; Z88.1 Allergy status to other antibiotic agents; Z88.5 Allergy status to narcotic agent; Z88.0 Allergy status to penicillin; Z88.8 Allergy status to other drugs, medicaments and biological substances; Z01.812 Encounter for preprocedural laboratory examination

== ENCOUNTER → 2017-11-09 13:53 | Outpatient (CLI) | payer MEDICARE, OTHER ==
[2017-10-18 06:44] VITALS: BMI 37.8
== END | disposition home or self-care (01) ==
LOC: D.CT 13:53
DX: M25.552 Pain in left hip (principal)

== ENCOUNTER 2017-12-05 10:40 | Day surgery (SDC) | payer MEDICARE, OTHER ==
[~2017-12-05] VITALS: Ht 162.6 cm; Wt 100.9 kg
--- NOTE | ~2017-12-05 | OP ---
PATIENT NAME: CHANEL VILLEGAS MEDICAL RECORD: [id number] :50 LOCATION:D.OPS ADMISSION DATE: SURGEON: LUCAS GOMEZ MD DATE OF OPERATION: 12/05/2017 PREOPERATIVE DIAGNOSIS: History of colon polyps, in need of surveillance colonoscopy. POSTOPERATIVE DIAGNOSES: History of colon polyps, in need of surveillance colonoscopy, with inadequate prep. Also, one cecal polyp, 6 mm, sessile. PROCEDURES: 1. Total colonoscopy to cecum. 2. Hot biopsy forceps polypectomy times 1. SURGEON: Lucas Gomez MD MEDICAL LAB DIRECTOR: None. BLOOD LOSS: Minimal. ANESTHESIA: IV sedation. COMPLICATIONS: None. The risks, possible complications, and alternatives to the procedure were explained to the patient. A consent form was signed. ENDOSCOPIC COURSE: The patient was conveyed to the endoscopy suite electively on 12/05/2017. IV sedation was induced by the anesthesia staff. The patient was placed in the Day position. A digital rectal examination was performed. A colonoscope was inserted through the anus. It was easily advanced to the cecum. The prep was inadequate. The patient had eaten some gummy bears the day before, during her bowel prep, and this may have had something to do with the poor prep. I can only rule out obstructing masses. Upon withdrawal, I irrigated and aspirated extensively. I used combination of normal imaging as well as narrow band imaging. Despite aggressive lavage of the colon and rectum, the prep was still inadequate as I was unable to wash away a lot of the solid fecal material. One hot biopsy forceps polypectomy was performed in the cecum. I dragged the folds. The pullback was a slow pullback. A retroflexed view was obtained in the rectum. This revealed an anal papilla. The patient also had enlarged external hemorrhoids. The endoscope was then withdrawn under direct vision. Due to the inadequate prep, I will recommend recolonoscopy in 2 years and I will need to use a 2-day prep. I will see the patient in my office to review the results of biopsies in 2-3 weeks. TRANSINT:[id number] Voice Confirmation ID: [id number] DOCUMENT ID: [id number] OPERATIVE REPORT [id number] CHANEL VILLEGAS LUCAS GOMEZ MD at 1126 CC: MARÍA PUGA DO, MIKAYLA REYES MD and CORIN SILVEIRA [id number] DICTATION DATE: 12/05/17 1434 SWAGER OPERATOR: 12/05/17 1559 [facility] 12/05/17 [place] [id number] [place] [address]
--- NOTE | ~2017-12-05 | HP ---
PATIENT: CHANEL VILLEGAS MEDICAL RECORD: [id number] ACCOUNT: [id number] LOCATION:[place] : 50 ADMISSION DATE: 12/05/17 HISTORY AND PHYSICAL EXAMINATION CHIEF COMPLAINT: She is here for surveillance colonoscopy. HISTORY OF PRESENT ILLNESS: The patient has a history of coronary stents. She has been having band-like upper abdominal pain. No rectal bleeding. The risks, possible complications and alternatives to procedure were explained to the patient. She elects to proceed. HOME MEDICATIONS: Please see the nursing list. Her last dose of Plavix was on 12/02/2017. ALLERGIES: Numerous as well. SOCIAL HISTORY: Current smoker. 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 PHYSICAL EXAMINATION: GENERAL: The patient does not appear acutely ill. She does appear chronically ill. The entire physical examination was performed in the presence of a female nurse. VITAL SIGNS: Reviewed. EARS: External ears appear normal. EYES: Extraocular movements are intact. FACE: There is right-sided facial droop, which spares the forehead. PULMONARY: Nonlabored. ABDOMEN: Nontender. IMPRESSION: History of colon polyps. PLAN: Will be surveillance colonoscopy. TRANSINT:[id number] Voice Confirmation ID: [id number] DOCUMENT ID: [id number] HISTORY AND PHYSICAL [id number] NELLYCHANEL LUCAS MONTGOMERY MD at 1126 CC: MARÍA PUGA DO, PAIXAO, ANDRE MD and CORIN SILVEIRA [id number] DICTATION DATE: 12/05/17 1320 PHOTOGRAPHER HELPER: 12/05/17 1354 [facility] 12/05/17 [facility] [address] [place] [address]
[2017-12-05 11:11] LABS: BASOPHILS 0.5 % (0-2); EOSINOPHILS 3.5 % (0-7); HEMATOCRIT 42.3 % (36.0-48.0); HEMOGLOBIN 14.3 g/dL (12-16); IMMATURE GRANULOCYTES 0.2 % (0-5); LYMPHOCYTES 30.3 % (15-50); MCH 28.8 pg (26.0-34.0); MCHC 33.8 g/dL (31.0-37.0); MCV 85.1 fL (80.0-100.0); MEAN PLATELET VOLUME 9.5 fL (7.4-10.4); MONOCYTES 8.2 % (2-11); NEUTROPHILS 57.3 % (40-80); PLATELET COUNT 198 10x3/uL (130-400); RBC 4.97 10x6/uL (4.00-5.40); RDW 14.2 % (11.5-14.5)
[2017-12-05 11:24] LABS: CALC OSMOLALITY 279 mosm/kg (275-300); CALCIUM 9.4 mg/dL (8.5-10.1); CARBON DIOXIDE 25.4 mmol/L (21.0-32.0); CHLORIDE - SERUM 100 mmol/L (98-107); CREATININE - SERUM 0.5 mg/dL (0.6-1.3); POTASSIUM - SERUM 3.9 mmol/L (3.5-5.1); SODIUM 136 mmol/L (136-145); UREA NITROGEN 6 mg/dL (7-18); eGFR NON AFRICAN AMERICAN > 90 mL/min (90-120)
[2017-12-05 11:28] LABS: GLUCOSE 279 mg/dL (74-106)
[2017-12-05 12:28] VITALS: BP 141/77; Ht 162.6 cm; Wt 100.9 kg
== END 2017-12-05 14:30 | disposition home or self-care (01) ==
LOC: D.OPS 10:40
PROVIDERS: Anesthesiology
DX: K63.5 Polyp of colon (principal); K21.9 Gastro-esophageal reflux disease without esophagitis; F17.200 Nicotine dependence, unspecified, uncomplicated; K44.9 Diaphragmatic hernia without obstruction or gangrene; J44.9 Chronic obstructive pulmonary disease, unspecified; G47.30 Sleep apnea, unspecified; E11.9 Type 2 diabetes mellitus without complications; E03.9 Hypothyroidism, unspecified; I10 Essential (primary) hypertension; Z01.812 Encounter for preprocedural laboratory examination

== ENCOUNTER → 2018-01-19 10:42 | Outpatient (CLI) | payer MEDICARE, OTHER ==
[2017-12-05 12:28] VITALS: BMI 38.2
== END | disposition home or self-care (01) ==
LOC: D.CT 01-16 10:30
DX: M54.12 Radiculopathy, cervical region (principal)

== ENCOUNTER → 2018-03-14 14:57 | Outpatient (CLI) | payer MEDICARE, OTHER ==
[2017-12-05 12:28] VITALS: BMI 38.2
== END | disposition home or self-care (01) ==
LOC: D.CT 14:57
DX: M79.641 Pain in right hand (principal); M25.531 Pain in right wrist

== ENCOUNTER → 2018-03-23 15:06 | Outpatient (CLI) | payer MEDICARE, OTHER ==
[2017-12-05 12:28] VITALS: BMI 38.2
[2018-03-23 15:27] LABS: BASOPHILS 0.5 % (0-2); EOSINOPHILS 1.4 % (0-7); HEMATOCRIT 40.9 % (36.0-48.0); HEMOGLOBIN 13.8 g/dL (12-16); IMMATURE GRANULOCYTES 0.1 % (0-5); LYMPHOCYTES 34.8 % (15-50); MCH 28.5 pg (26.0-34.0); MCHC 33.7 g/dL (31.0-37.0); MCV 84.3 fL (80.0-100.0); MEAN PLATELET VOLUME 9.6 fL (7.4-10.4); MONOCYTES 6.5 % (2-11); NEUTROPHILS 56.7 % (40-80); PLATELET COUNT 234 10x3/uL (130-400); RBC 4.85 10x6/uL (4.00-5.40); RDW 13.7 % (11.5-14.5); WBC 8.4 10x3/uL (4.8-10.8)
[2018-03-23 16:40] LABS: ANION GAP 16.9 mmol/L (8-16); CALCIUM 8.8 mg/dL (8.5-10.1); CARBON DIOXIDE 22.3 mmol/L (21.0-32.0); POTASSIUM - SERUM 4.2 mmol/L (3.5-5.1); URIC ACID 3.5 mg/dL (2.6-7.2)
[2018-03-23 17:12] LABS: ERYTHROCYTE SEDIMENTATION RATE 0 mm/hr (0-30)
== END | disposition home or self-care (01) ==
LOC: D.LAB 13:15
PROVIDERS: Family Medicine
DX: M25.50 Pain in unspecified joint (principal); L40.50 Arthropathic psoriasis, unspecified

== ENCOUNTER → 2018-06-22 10:35 | Outpatient (CLI) | payer MEDICARE, OTHER ==
[2017-12-05 12:28] VITALS: BMI 38.2
== END | disposition home or self-care (01) ==
LOC: D.CT 10:35
DX: M25.571 Pain in right ankle and joints of right foot (principal)

== ENCOUNTER 2018-08-27 09:29 | Day surgery (SDC) | payer MEDICARE, OTHER ==
[~2018-08-27] VITALS: Ht 162.6 cm; Wt 103.0 kg
[2018-08-27 10:05] LABS: HEMATOCRIT 44.8 % (36.0-48.0); HEMOGLOBIN 15.3 g/dL (12-16); MCHC 34.2 g/dL (31.0-37.0); MCV 84.8 fL (80.0-100.0); MEAN PLATELET VOLUME 9.6 fL (7.4-10.4); RBC 5.28 10x6/uL (4.00-5.40); RDW 13.6 % (11.5-14.5); WBC 6.3 10x3/uL (4.8-10.8)
[2018-08-27 10:14] LABS: CALC OSMOLALITY 282 mosm/kg (275-300); CALCIUM 9.4 mg/dL (8.5-10.1); CARBON DIOXIDE 24.3 mmol/L (21.0-32.0); CHLORIDE - SERUM 98 mmol/L (98-107); CREATININE - SERUM 0.7 mg/dL (0.6-1.3); POTASSIUM - SERUM 4.2 mmol/L (3.5-5.1); SODIUM 135 mmol/L (136-145); UREA NITROGEN 11 mg/dL (7-18); eGFR NON AFRICAN AMERICAN 88 mL/min (90-120)
[2018-08-27 10:16] LABS: GLUCOSE 358 mg/dL (74-106)
[2018-08-27 10:56] VITALS: BP 143/63; Ht 162.6 cm; Wt 103.0 kg
--- NOTE | 2018-08-28 13:25 | OP ---
PATIENT NAME: CHANEL VILLEGAS MEDICAL RECORD: [id number] :50 LOCATION:D.OPS ADMISSION DATE: SURGEON: RG GOMEZ MD DATE OF OPERATION: 08/27/2018 PREOPERATIVE DIAGNOSES: 1. Cutaneous and subcutaneous abscesses of the right upper inner thigh. 2. Cutaneous and subcutaneous abscess of the left breast. POSTOPERATIVE DIAGNOSES: 1. Cutaneous and subcutaneous abscesses of the right upper inner thigh. 2. Cutaneous and subcutaneous abscess of the left breast. PROCEDURE: Incisional debridement of subcutaneous and cutaneous abscesses as described above. SURGEON: Rg Gomez MD CHIEF ARCHITECT: None. BLOOD LOSS: Minimal. ANESTHESIA: Local with IV sedation. COMPLICATIONS: None. I saw the patient in the holding area in the presence of a female nurse, I marked the 2 sites. OPERATIVE COURSE: The patient was conveyed to the operating room electively on 08/27/2018. IV sedation was induced by the anesthesia staff. The patient was frog-legged. The perineum as well as the upper thighs were sterilely prepped and draped. Both sites were infiltrated with a combination of Marcaine and lidocaine. The left breast was sterilely prepped and draped. Cultures were obtained. I then performed incisional biopsies with a curettage. There was very little bleeding. Sterile dressings were applied. The patient was then conveyed back to the post-anesthesia care unit. I will see her in the office in 2-3 weeks. TRANSINT:[id number] Voice Confirmation ID: [id number] DOCUMENT ID: [id number] RG GOMEZ MD at 1325 CC: MARÍA PUGA DO [id number] DICTATION DATE: 08/27/18 1323 JAVA PROGRAMMING PROFESSOR: 08/27/18 1502 [facility] 08/27/18 [place] [id number] [place] [address]
== END 2018-08-27 15:15 | disposition home or self-care (01) ==
LOC: D.OPS 09:29 → D.PAN 12:00 → D.OPS 15:15
PROVIDERS: Anesthesiology; Surgery
DX: L02.415 Cutaneous abscess of right lower limb (principal); N61.1 Abscess of the breast and nipple; Z01.812 Encounter for preprocedural laboratory examination

== ENCOUNTER 2019-08-27 05:43 | Observation (INO) | payer MEDICARE, OTHER ==
[~2019-08-27] VITALS: Ht 160 cm; Wt 98.7 kg
[2019-08-27 06:23] LABS: HEMOGLOBIN 15.7 g/dL (12-16); MCH 28.5 pg (26.0-34.0); MCHC 33.4 g/dL (31.0-37.0); MCV 85.3 fL (80.0-100.0); MEAN PLATELET VOLUME 9.9 fL (7.4-10.4); RBC 5.51 10x6/uL (4.00-5.40); RDW 16.1 % (11.5-14.5); WBC 7.4 10x3/uL (4.8-10.8)
[2019-08-27 06:40] LABS: CALC OSMOLALITY 282 mosm/kg (275-300); CALCIUM 9.6 mg/dL (8.5-10.1); CARBON DIOXIDE 28.1 mmol/L (21.0-32.0); CHLORIDE - SERUM 101 mmol/L (98-107); CREATININE - SERUM 0.7 mg/dL (0.6-1.3); POTASSIUM - SERUM 3.8 mmol/L (3.5-5.1); SODIUM 137 mmol/L (136-145); UREA NITROGEN 8 mg/dL (7-18); eGFR NON AFRICAN AMERICAN 88 mL/min (90-120)
[2019-08-27 06:44] LABS: GLUCOSE 298 mg/dL (74-106)
[2019-08-27] MEDS ORDERED: PLAVIX75 MG PO (06:59)
[2019-08-27 07:06] VITALS: BMI 39.2
--- NOTE | 2019-08-27 11:51 | NUR ---
1100 PT ARRIVED TO ROOM 2520 AFTER EGD WITH ARGON IN GI LAB. PT CRYING AND STATING SHE IS HAVING CHEST PAIN. ORDERS FOR 12 EKG AND CXR NOTED. EKG WAS REVIEWED BY DR WINSTON AND HE STATES SHE IS NOT HAVING ANY ISCHEMIC CHANGES. REQUESTED IRON PLASTIC BULLET MAKER TOP SPOTTER BE CONSULTED. DR GOMEZ REVIEWED CXR AT BEDSIDE AND ORDERS WERE RECEIVED FOR ATIVAN. PT IS MORE COMFORTABLE NOW BUT STILL CONTINUES TO C/O ABDOMINAL AND CP. PT IS WARM AND DRY. NO EMESIS. NO NAUSEA AFTER GI COCKTAIL AND ZOFRAN. 1140 PT ASLEEP BUT AROUSES TO VS. STATES SHE DOES NOT HAVE ANY ABDOMINAL PAIN AND VERY LITTLE CHEST PAIN. PT HAS VOIDED IN THE BED AND LINEN CHANGE DONE. 1141 DR SILVEIRA AT BEDSIDE EVALULATING PT AND EKG. STATES HE WILL ADMIT HER FOR OBSERVATION AND DO A CARDIAC CATH ON HER TOMORROW.
--- NOTE | 2019-08-27 13:01 | NUR ---
1255 REPORT CALLED TO CHRIS AYALA RN
--- NOTE | 2019-08-27 13:17 | NUR ---
1314 ECHO AT BEDSIDE IN PROGRESS
[2019-08-27 14:01] VITALS: BP 166/77; Ht 160 cm; Wt 98.7 kg
[2019-08-27 16:04] VITALS: BP 161/81
--- NOTE | 2019-08-27 19:30 | NUR ---
RECEIVED BEDSIDE REPORT. PATIENT IS ALERT AND ORIENTED, RESTING COMFORTABLY IN BED. RESPIRATIONS ARE EVEN AND UNLABORED. NO S/S OF DISTRESS. NO C/O PAIN. CALL LIGHT WITHIN REACH. WILL CPOC.
[2019-08-27 21:03] VITALS: BP 138/101
--- NOTE | 2019-08-27 23:52 | NUR ---
PATIENT RESTING COMFORTABLY IN BED. RESPIRATIONS ARE EVEN AND UNLABORED. NO S/S OF DISTRESS. CALL LIGHT WITHIN REACH. WILL CPOC.
[2019-08-28 01:51] VITALS: BP 150/80
--- NOTE | 2019-08-28 05:51 | NUR ---
PATIENT REFUSING TO BE PREPPED FOR HER CARDIAC CATH THIS AM.
[2019-08-28 06:34] VITALS: BP 160/85
[2019-08-28 08:33] VITALS: BP 120/74
--- NOTE | 2019-08-28 10:52 | NUR ---
UPSET THAT SHE WAS AWAKENED EARLY THIS AM AND HAS NOT LEFT FOR HEART CATH YET. STATES SHE IS HUNGERY AND IS DIABETIC. BS CHECKED. KNIFE GLAZER NOTIFIED. DR SILVEIRA NOTIFIED. THEY WERE WILLING TO COME GET HER NEXT IF SHE WOULD STAY. WANTED TO KNOW IF SHE COULD GO SMOKE FIRST. I TOLD HER NO BEACAUSE THEY WOULD BE OVER TO GET HER AND I NEEDED TO PRE-OP HER. SHE STATES THAT SHE IS ALREADY DRESSED AND HER SON WAS HERE SO SHE DECIDED TO GO AND GET HER HEART CATH DONE AT A LATER TIME. IV AND TELEMETRY DCD. REFUSED TO SIGN AMA FORM AND LEFT HOSP WITH SON.
--- NOTE | 2019-08-29 16:48 | HP ---
PATIENT: CHANEL VILLEGAS MEDICAL RECORD: [id number] ACCOUNT: [id number] LOCATION:[address] : 50 ADMISSION DATE: 08/27/19 PCP: MARÍA PUGA DO HISTORY AND PHYSICAL EXAMINATION DIAGNOSES: 1. Unstable angina. 2. Coronary artery disease. 3. Previous multivessel percutaneous transluminal coronary angioplasty stent. 4. Hypertension. 5. Hyperlipidemia. 6. Pacemaker. 7. Paroxysmal atrial fibrillation. HISTORY OF PRESENT ILLNESS: Mrs. Villegas presented to outpatient for EGD. She has been having chest pain, chest discomfort compatible with angina. They initially thought it was secondary to a GI etiology; however, EGD was overall normal. She is class IV angina just like that of her previous angina. Last cardiac stenting has been quite some time. She has been escalating over the past 3-4 months, she is now having episodes of rest pain. PHYSICAL EXAMINATION: CONSTITUTIONAL/GENERAL APPEARANCE: Well nourished, well developed, appears stated age. EYES: Lids and conjunctivae noninjected. No discharge. No pallor. ENT: Lips within normal limit. No cyanosis. No pallor. NECK: Carotid arteries, bilateral normal upstroke. No bruits. No thrills. No jugular venous pressure or distention. CERVICAL LYMPH NODES: Nontender. Nonenlarged. THYROID: Not enlarged. No nodules. CARDIOVASCULAR: Precordial exam, nondisplaced. No heaves or pericardial thrills. Rate and rhythm, regular. Heart sounds, normal S1, normal S2. No S3, no gallop, no rub. Systolic murmur, not heard. Diastolic murmur, not heard. RESPIRATORY: Respiratory effort, unlabored. Normal curvature. No thoracic deformity. No chest wall tenderness. Percussion, resonant. Auscultation, clear. No wheezes, no rales, no rhonchi. ABDOMEN: Soft, nondistended, nontender. No abdominal pain, no vomiting and normal appetite. MUSCULOSKELETAL: No joint tenderness, normal gait, normal tone. SKIN: Warm and dry. OVERALL IMPRESSION: Unstable angina class IV, chest pain just like that of her previous angina. Negative EGD, hence it is not GI in nature. We will proceed with repeat coronary angiography. Further care depends upon the findings of the angiography. TRANSINT:[id number] Voice Confirmation ID: [id number] DOCUMENT ID: [id number] HISTORY AND PHYSICAL [id number] CHANEL VILLEGAS JEFFREY MD at 1648 CC: [id number] DICTATION DATE: 08/27/19 1149 SPINNER CONTINUOUS: 08/27/19 1204 DIS IN 08/28/19 [place] [id number] [place] [id number]
--- NOTE | 2019-08-29 16:48 | EC ---
PATIENT:CHANEL VILLEGAS DATE OF SERVICE: 08/27/19 SEX: F MEDICAL RECORD: [id number] DATE OF : 50 LOCATION:D.M2 D.211 AGE OF PATIENT: 69 ADMISSION DATE: 08/27/19 REFERRING PHYSICIAN: INTERPRETING PHYSICIAN: OCRIN NARAYANAN MD ECHOCARDIOGRAM REPORT ECHO CHARGES 4 ECHO COMPLETE Date: 08/27/19 CLINICAL DIAGNOSIS: UNSTABLE ANGINA ECHOCARDIOGRAPHIC MEASUREMENTS (adult normal given) AC root (d.<3.7cm) 3.6 cm LV Septum d (<1.2 cm> 1.8 cm Valve Excursion 1.8 cm LV Septum (systole) 2.4 cm Left Atria (s.<4.0cm> 4.5 cm LVPW d(<1.2cm) 1.8 cm RV (d.<2.3cm) 2.4 cm LVPW (sytole) 2.4 cm LV diastole(<5.6CM) 3.8 cm MV E-F(>70mm/sec) cm LV systole 1.8 cm LVOT Diameter 1.9 cm MV exc.(>10mm) cm Est.ejection fraction (50-75%) % DOPPLER: LVIT cm/sec A cm/sec E 108 cm/sec LA cm/sec RVSP 39.0 mmHg LVOT 107 cm/sec AOP1/2T m/s Asc. Ao 147 cm/sec RVOT 89.0 cm/sec RA cm/sec PA 137 cm/sec AV Gradient Peak 8.6 mmHg AV Mean 4.6 mmHg AV Area 1.7 cm MV Gradient Peak 9.2 mmHg MV Mean 3.3 mmHg MV Area cm COMMENTS: Tunnel Elastic Operator Zigzag: 1 MONICA SORIANOOE Resident Care Supervisor: 1 Dr. Narayanan TAPE# PACS Pericardial Effusion N DATE OF SERVICE: ECHOCARDIOGRAM FINDINGS: 1. Left ventricular chamber size is within normal limits. Left ventricular systolic function is normal. Overall ejection fraction estimated at 55%. 2. Left atrium is enlarged at 4.5 cm. Right atrium and right ventricle chamber sizes are as well mildly dilated. 3. Valvular structures have normal structure and motion. ECHOCARDIOGRAM REPORT [id number] CHANEL VILLEGAS 4. Doppler interrogation reveals trivial tricuspid regurgitation, no other valvular insufficiency or stenosis and pulmonary systolic pressure is estimated at 39 mmHg. 5. No evidence of pericardial effusion or left ventricular thrombus. TRANSINT:[id number] Voice Confirmation ID: [id number] DOCUMENT ID: [id number] CORIN NARAYANAN MD at 1648 CC: [id number] DICTATION DATE: 08/28/19 1026 COSTING MANAGER: 08/28/19 1401 DIS IN 08/28/19 [place] [id number] [place] [id number]
--- NOTE | 2019-08-29 17:20 | HP ---
PATIENT: CHANEL VILLEGAS MEDICAL RECORD: [id number] ACCOUNT: [id number] LOCATION:.[facility]2117 : 50 ADMISSION DATE: 08/27/19 PCP: MARÍA PUGA DO HISTORY AND PHYSICAL EXAMINATION Cc: Bradley's HISTORY OF PRESENT ILLNESS: The patient is here for Bradley's surveillance. She does have some dysphagia. She has undergone balloon dilation of the esophagus in the past and this really did not help with her dysphagia. HOME MEDICATIONS: Please see the nursing list. ALLERGIES: Please see the nursing list. SOCIAL HISTORY: Smoker. PAST MEDICAL AND SURGICAL HISTORY: Sleep apnea, COPD, bronchitis, asthma, coronary artery disease, hypertension, congestive heart failure, atrial fibrillation, sick sinus syndrome, history of Bradley's esophagus, history of 16 coronary stents, history of fatty liver disease, hypothyroidism, on replacement therapy, noninsulin-dependent diabetes mellitus. PHYSICAL EXAMINATION: GENERAL: The patient does not appear acutely ill. She does appear chronically ill. VITAL SIGNS: Reviewed. EARS: External ears appear normal. EYES: Extraocular movements are intact. NECK: Trachea is midline. CHEST: No intercostal retractions. PULMONARY: Nonlabored, no stridor. IMPRESSION: 1. Gastroesophageal reflux. 2. Bradley's esophagus in need of surveillance upper endoscopy with biopsies. PLAN: Upper endoscopy with biopsies. TRANSINT:[id number] Voice Confirmation ID: [id number] DOCUMENT ID: [id number] LUCAS GOMEZ MD at 1720 CC: MRAÍA PUGA DO and MERLIN YADAV MD [id number] DICTATION DATE: 08/27/19 0904 RADIO DIVISION LIEUTENANT: 08/27/19 0936 DIS IN 08/28/19 [facility] [address] [place] [address]
--- NOTE | 2019-08-29 17:21 | OP ---
PATIENT NAME: CHANEL VILLEGAS MEDICAL RECORD: [id number] :50 LOCATION:D.M2 D.2117 ADMISSION DATE:08/27/19 SURGEON: LUCAS GOMEZ MD DATE OF OPERATION: 08/27/2019 PREOPERATIVE DIAGNOSES: History of Bradley's esophagus in need of surveillance upper endoscopy. POSTOPERATIVE DIAGNOSES: History of Bradley's esophagus in need of surveillance upper endoscopy with moderately sized hiatal hernia, also duodenal bulbar polyp, which was a sessile polyp and was a 2.0 cm polyp. PROCEDURES: Esophagogastroduodenoscopy with antral and distal esophageal biopsies. Endoscopic mucosal resection, polypectomy of the duodenal bulbar polyp. The risks, possible complications and alternatives to the procedure were explained to the patient. She elects to proceed. ENDOSCOPIC COURSE: The patient was conveyed to endoscopy suite electively on 08/27/2019. IV sedation was induced by the anesthesia staff. A bite block was inserted. A gastroscope was inserted into the mouth. It advanced easily into the hypopharynx. The esophagus was easily intubated as were the stomach and duodenum. Upon withdrawal, retroflexed and angulus views were obtained. Antral biopsies were obtained to rule out H. pylori. I then advanced into the duodenum. Due to the patient's respiratory motion, coughing and belly breathing it was difficult to get the proper orientation to perform the polypectomy, but I was able to do so. Next time, the patient undergoes upper endoscopy, my recommendation would be to be under a general endotracheal anesthesia where the patient can be paralyzed. I advanced a sclerotherapy needle. At the base of the polyp, I injected epinephrine for a post-procedural hemostasis. I then withdrew the sclerotherapy needle. I readvanced the sclerotherapy needle and injected Eleview at the base of the polyp. This lifted the polyp up. I advanced an endoscopic snare. I was then able to snare off the polyp utilizing the coagulation setting and the cut setting. The snare was removed. I then advanced an endoscopic retrieval net. I was able to grasp the polyp and withdrew it with the gastroscope out through the mouth. I then readvanced the gastroscope into the esophagus and stomach. Some additional hot biopsies were obtained in the duodenal bulb. I then withdrew the hot biopsy forceps. I advanced an argon plasma rolled oats mill operator utilizing the esophageal setting in the forced mode, I ablated any residual polypoid tissue that I could identify. The endoscope was then withdrawn into the distal esophagus. I advanced the cold biopsy forceps and performed surveillance cold biopsy forceps along the Z-line. The endoscope was then withdrawn under direct vision. The patient was having a good bit of discomfort postprocedurally. We are awaiting a portable chest x-ray. I will see the patient in my office in 2-3 weeks. It is very likely at that time, I will recommend that she undergo another surveillance upper endoscopy in 1 year due to the duodenal polyp. However, in this case, I am going to recommend general endotracheal anesthesia with paralysis in order to better evaluate the duodenal bulb. OPERATIVE REPORT [id number] CHANEL VILLEGAS TRANSINT:[id number] Voice Confirmation ID: [id number] DOCUMENT ID: [id number] LUCAS GOMEZ MD at 1721 CC: MARÍA PUGA DO and MERLIN YADAV MD [id number] DICTATION DATE: 08/27/19 0957 FINISHING RANGE SUPERVISOR: 08/27/19 1136 DIS IN 08/28/19 [facility] [address] [place] [address]
== END 2019-08-28 10:59 | disposition left against medical advice (07) ==
LOC: D.M2 05:43 → D.OPS 05:43 → OBSVTIME 11:52 → D.M2 11:52 → D.OPS 13:25 → D.M2 13:25 → D.OPS 08-28 10:59 → D.M2 08-28 10:59
PROVIDERS: Anesthesiology; ADMIT Internal Medicine Interventional Cardiology; ATTEND Internal Medicine Interventional Cardiology
DX: R07.9 Chest pain, unspecified (principal); I25.110 Atherosclerotic heart disease of native coronary artery with unstable angina pectoris; I10 Essential (primary) hypertension; E78.5 Hyperlipidemia, unspecified; I48.0 Paroxysmal atrial fibrillation; Z95.0 Presence of cardiac pacemaker; K21.9 Gastro-esophageal reflux disease without esophagitis; K22.70 Barrett's esophagus without dysplasia; R13.10 Dysphagia, unspecified; J44.9 Chronic obstructive pulmonary disease, unspecified; E03.9 Hypothyroidism, unspecified; E11.9 Type 2 diabetes mellitus without complications

== ENCOUNTER 2020-01-01 19:12 | Emergency (ER) | payer MEDICARE, OTHER ==
[~2020-01-01] VITALS: Ht 160 cm; Wt 97.3 kg
[2020-01-01 19:18] VITALS: Ht 160 cm; Wt 97.3 kg
[2020-01-01] MEDS ORDERED: PRAVACHOL20 MG PO (19:21)
[2020-01-01] MEDS ORDERED: XARELTO10 MG PO (19:22)
[2020-01-01 20:06] LABS: BASOPHILS 0.4 % (0-2); EOSINOPHILS 1.9 % (0-7); HEMATOCRIT 46.8 % (36.0-48.0); HEMOGLOBIN 14.9 g/dL (12-16); IMMATURE GRANULOCYTES 0.3 % (0-5); LYMPHOCYTES 20.2 % (15-50); MCH 28.1 pg (26.0-34.0); MCHC 31.8 g/dL (31.0-37.0); MCV 88.3 fL (80.0-100.0); MEAN PLATELET VOLUME 9.8 fL (7.4-10.4); MONOCYTES 8.6 % (2-11); NEUTROPHILS 68.6 % (40-80); PLATELET COUNT 198 10x3/uL (130-400); RDW 13.4 % (11.5-14.5); WBC 7.2 10x3/uL (4.8-10.8)
[2020-01-01 20:28] LABS: ALBUMIN 3.2 g/dL (3.4-5.0); ANION GAP 13.7 mmol/L (8-16); BILIRUBIN - TOTAL 0.4 mg/dL (0.2-1.3); CALCIUM 9.1 mg/dL (8.5-10.1); CARBON DIOXIDE 27.1 mmol/L (21.0-32.0); POTASSIUM - SERUM 3.8 mmol/L (3.5-5.1); PROTEIN - SERUM 7.6 g/dL (6.4-8.2)
[2020-01-01 22:43] VITALS: BP 145/64
== END 2020-01-01 22:43 | disposition home or self-care (01) ==
LOC: D.ER 19:12
PROVIDERS: Family Medicine
DX: E11.65 Type 2 diabetes mellitus with hyperglycemia (principal); I73.9 Peripheral vascular disease, unspecified; E11.40 Type 2 diabetes mellitus with diabetic neuropathy, unspecified; J44.9 Chronic obstructive pulmonary disease, unspecified; I11.0 Hypertensive heart disease with heart failure; I50.9 Heart failure, unspecified; Z95.0 Presence of cardiac pacemaker; K21.9 Gastro-esophageal reflux disease without esophagitis; Z72.0 Tobacco use; Z79.4 Long term (current) use of insulin; E07.9 Disorder of thyroid, unspecified

== ENCOUNTER 2020-01-29 14:06 | Inpatient (IN) | payer MEDICARE, OTHER ==
[~2020-01-29] VITALS: Ht 160 cm; Wt 90.9 kg
--- NOTE | ~2020-01-29 | HEMODYNAMI ---
PATIENT:CHANEL VILLEGAS MEDICAL RECORD: [id number] : 50 LOCATION:[facility] D.[address] [facility]# [id number] ADMISSION DATE: 01/29/20 Generatedon:01/30/202016:53 Patient name: CHANEL VILLEGAS Patient #: [id number] : 1950 Date of study: 01/30/2020 Page: Of Hemodynamic Procedure Report Patient Data Patient Demographics Procedure consent was obtained First Name: CHANEL Gender: Female Last Name: NELLY : 1950 [facility] Initial: PALMER Age: 69 year(s) Patient #: [id number] Race: SSN: [id number] Additional ID: [id number] Contact details Address: [address] [place] [address] street State: [place] City: [place] Zip code: [address] Past Medical History History of disease Date Diagnosis Comments CAD PVD Allergies Allergen Reaction Date Comments Reported Other allergy 04/26/2016 Isosorbide, nononitrate, IImdur, PCN, Chlorohexadine, Exenatide, Metoprolol Tartrate, Topriramate, Codeine Other allergy 01/30/2020 see chart Admission Admission Data Admission Date: 01/29/2020 Admission Time: 15:35 Arrival Date: 01/30/2020 Arrival Time: 0:00 Admit Source: Other Insurance Payor: Room #: D.2125 State-specific plan [facility] #: [id number] Height (in.): 62.99 BSA: 1.93 (m2) Height (cm.): 160 BMI: 35.16 (kg/m2) Weight (lbs.): 198.42 Weight (kg.): 90 Lab Results Lab Result Date: 01/30/2020 Lab Result Time: 0:00 Biochemistry Name Units Result Min Max BUN mg/dl 14 --(--*-)-- 7 18 Creatinine mg/dl 0.6 --(*---)-- 0.6 1.3 eGFR ml/min 90 --(*---)-- 90 120 NONAFRICAN CBC Name Units Result Min Max Hemoglobin g/dl 13.7 --(*---)-- 13.5 17.5 Procedure Procedure Types Cath Procedure Diagnostic Procedure [facility] w/Coronaries Sedation Charges Moderate Sedation up to 30 minutes PCI Procedure Coronary Stent Hemochron ACT Test Procedure Description Procedure Date Procedure Date: 01/30/2020 Procedure Start Time: 16:22 Procedure End Time: 16:46 Procedure Staff Name Function Dennis Niño MD Performing Physician Ashley Varela RT Monitor Loreto Esparza RN Nurse Luna Burgess RT Scrub Indication Chest pain Procedure Data Cath Procedure Fluoroscopy Diagnostic fluoroscopy Total fluoroscopy Time: 4.7 time: 4.7 min min Diagnostic fluoroscopy Total fluoroscopy dose: 741 dose: 741 mGy mGy Contrast Material Contrast Material Type Amount (ml) Isovue 300 99 Entry Location Entry Primary Successful Side Size Upsize Upsize Entry Closure Succes sful Closure Location (Fr) 1 (Fr) 2 (Fr) Remarks Device Remarks Femoral Right 5 Fr 6 Fr artery Short Estimated blood loss: 10 ml Diagnostic catheters Device Type Used For End Catheter Placement MULTIPACK JL 4.0 5Fr Procedure catheter MULTIPACK 3DRC 5Fr Procedure catheter MULTIPACK Pigtail 5 Fr Ventriculography catheter Procedure Complications No complications Procedure Medications Medication Administration Route Dosage 0.9% NaCl I.V. 100 ml/hr Oxygen etCO2 Nasal cannula 2 l/min Lidocaine 2% added to field 20 Heparin Flush Bag added to field 2 bags (1000units/500ml NS) Versed I.V. 2 mg Fentanyl I.V. 50 mcg Fentanyl I.V. 50 mcg Heparin Bolus I.V. 5000 units Integrilin (Bolus I.V. 7.9 ml 2mg/ml) Integrilin (Bolus wasted 2.1 ml 2mg/ml) Plavix P.O. 600 mg Hemodynamics Rest BSA: 1.93 (m2) O2 Consumption: Estimated: 172.63 (ml/min) O2 Consumption indexed : Estimated:89.45 (ml/min/m) Heart Rate: 62 (bpm) Pressure Samples Time Site Value (mmHg) Purpose Heart Use Rate(bpm) 16:29 LV 163/9,12 Snapshot 62 Gradients Valve Time Site Site Mean SEP/DFP Peak To Heart Use 1 2 (mmHg) (sec/min) Peak Rate (mmHg) (bpm) Aortic 16:29 LV AO 63 Snapshots Pre Cath Intra NCS Post Cath Vital Signs Time Heart Resp SPO2 etCO2 NIBP (mmHg) Rhythm Pain Sedation Rate (ipm) (%) (mmHg) Status Level (bpm) 16:06:46 72 24 97 41 166/77(119) Paced 0 (11) 10(A) , No pain 16:11:45 69 11 97 42 Measuring Paced 0 (11) 10(A) , No pain 16:12:01 65 16 97 47 161/81(120) Paced 0 (11) 10(A) , No pain 16:16:23 62 26 97 26.8 145/72(122) Paced 0 (11) 10(A) , No pain 16:20:48 64 15 98 42.5 144/77(111) Paced 0 (11) 10(A) , No pain 16:25:10 71 14 98 41.8 159/79(127) Paced 0 (11) 10(A) , No pain 16:29:30 68 14 97 48.4 154/77(115) Paced 0 (11) 10(A) , No pain 16:34:29 65 21 98 49.2 Measuring Paced 0 (11) 10(A) , No pain 16:35:00 71 14 97 50 172/77(143) Paced 0 (11) 10(A) , No pain 16:39:26 69 15 98 48.5 166/79(127) Paced 0 (11) 10(A) , No pain 16:44:25 71 16 98 44 Measuring Paced 0 (11) 10(A) , No pain 16:44:52 71 17 97 41.8 192/86(139) Paced 0 (11) 10(A) , No pain Medications Time Medication Route Dose Verified Delivered Reason Notes Effectiveness by by 16:05:37 0.9% NaCl I.V. 100 Dennis Dangelo used for ml/hr St Ian Esparza procedure MD SMITH 16:05:43 Oxygen etCO2 2 Dennis Dangelo used for Nasal l/min [place] [facility] procedure cannula MD SMITH 16:05:48 Lidocaine 2% added 20ml Dennis Collins for local to vial [facility] anesthetic field MD LINARES 16:05:53 Heparin Flush added 2 Dennis Collins used for Bag to bags [facility] procedure (1000units/500ml field MD LINARES NS) 16:16:45 Versed I.V. 2 mg Dennis Loreto for sedation St Ian Esparza MD, RN 16:16:53 Fentanyl I.V. 50 Dennis Loreto for sedation mcg St Ian Esparza MD, RN 16:22:55 Fentanyl I.V. 50 Dennis Duarteyla for sedation mcg St Ian Esparza MD, RN 16:32:34 Heparin Bolus I.V. 5000 Dennis Loreto used for verified units [facility] procedure with Dr. MD SMITH [place] 16:32:52 Integrilin I.V. 7.9 Dennis Loreto for (Bolus 2mg/ml) ml St Ian Esparza antiplatelet RN therapy 16:33:11 Integrilin wasted 2.1 Dennis Loreto for (Bolus 2mg/ml) ml [facility] Ian Esparza antiplatelet RN therapy 16:36:12 Plavix P.O. 600 Dennis Duarteyla for mg St Ian Esparza antiplatelet RN therapy Procedure Log Time Note 15:48:25 Arrival Date: 01/30/2020 12:00:00 AM 15:48:53 Admit Source: Other 15:48:57 Insurance Payor : State-specific plan 15:49:15 Patient Height : 62.99 inches 15:49:19 Patient Weight : 198.42 lbs 15:50:07 Lab Result : eGFR NONAFRICAN 90 ml/min 15:50:07 Lab Result : Hemoglobin 13.7 g/dl 15:50:07 Lab Result : BUN 14 mg/dl 15:50:07 Lab Result : Creatinine 0.6 mg/dl 15:50:33 Indication : Chest pain 15:50:47 Procedure Status Urgent Heart Cath (IP). 15:50:49 Loreto Esparza RN sent for patient. Start room use. 15:50:51 Time tracking: Regular hours (M-F 7:00 - 5:00) 15:50:56 Plan of Care:Hemodynamics will remain stable., Cardiac rhythm will remain stable., Comfort level will be maintained., Respiratory function will remain adequate., Patient/ family verbilizes understanding of procedure., Procedure tolerated without complication., Recovers from procedure without complications.. 15:51:05 Patient received from Med II to [facility] 1 Alert and oriented. Tansferred to table in Supine position. 15:51:22 Signed procedure consent form obtained from patient. 15:51:24 Warm blankets applied, and jo ann hugger turned on for patient comfort. 15:51:24 Correct patient and procedure confirmed by team. 15:51:59 H&P Date Dictated: 01/29/2020 Within 30 days and on chart.. 15:52:01 Pre-procedure instructions explained to patient. 15:52:03 Family unavailable. 15:52:05 Patient NPO since Midnight. 15:53:25 Patient allergic to Other allergysee chart 15:53:37 Was the patient premedicated? Yes 15:53:59 Patient diabetic? Yes. 15:54:13 Is patient on blood thinner?Yes 15:54:39 ACC The patient was administered the following blood thiners within the last 24 hours: Xarelto 16:04:46 Sleep apnea? Yes 16:04:47 Snore? Yes 16:04:55 Sticks out tongue? Yes 16:05:04 Patient pain scale 0/10 ?. 16:05:11 Patient pain scale 2/10 ?. 16:05:20 IV patent on arrival in right forearm with 0.9% NaCl at [facility]. 16:05:26 Lab results completed and on chart. 16:05:28 Vital chart was started 16:05:32 Right groin area was prepped with chlora-prep and draped in sterile fashion 16:05:33 Alarms reviewed by R. N. 16:05:33 Sharps counted by scrub and verified by R.N. 16:05:37 0.9% NaCl 100 ml/hr I.V. was administered by Loreto Esparza RN; used for procedure; Verbal order read back and verified. 16:05:43 Oxygen 2 l/min etCO2 Nasal cannula was administered by Loreto Esparza RN; used for procedure; Verbal order read back and verified. 16:05:47 Right groin site verified by team. 16:05:48 Lidocaine 2% 20ml vial added to field was administered by Dennis Niño MD; for local anesthetic; Verbal order read back and verified. 16:05:52 Fire Safety Assessment: A--An alcohol-based skin anteseptic being used preoperatively., C--Open oxygen or nitrous oxide is being used., D--An ESU, laser, or fiber-optic light is being used. 16:05:53 Heparin Flush Bag (1000units/500ml NS) 2 bags added to field was administered by Dennis Niño MD; used for procedure; Verbal order read back and verified. 16:05:56 Physical assessment completed. ASA score P 2 - A patient with mild systemic disease as per Dennis Niño MD. 16:06:00 1) 90+ Normal kidney functon but urine findings or structural abnormalities or genetic trait point to kidney disease. 16:06:05 Maximum allowable contrast dose (3.7 X eGFR X 0.75)250 ml. 16:06:10 Sedation plan: IV Moderate Sedation Medication:Versed, Fentanyl 16:14:19 Physician arrived 16:14:19 --------ALL STOP TIME OUT------ 16:14:20 Final Timeout: patient, procedure, and site verified with staff and physician. All members of the team are in agreement. 16:14:33 Use device set Femoral Dx 16:14:36 ACIST Syringe (92455) opened to sterile field. 16:14:37 Bag Decanter (2002S) opened to sterile field. 16:14:38 Medline Cath Pack ([id number]) opened to sterile field. 16:14:39 ACIST Hand Control (61809) opened to sterile field. 16:14:40 ACIST Manifold (72922) opened to sterile field. 16:14:43 Tegaderm 4 x 4 (1626W) opened to sterile field. 16:14:46 SHEATH 5FR [place] (XHU318) opened to sterile field. 16:14:47 EMERALD Guide Wire (691-837) opened to sterile field. 16:14:57 DIAGNOSTIC Multipack 5Fr catheter set (VD2181) opened to sterile field. 16:16:45 Versed 2 mg I.V. was administered by Loreto Esparza RN; for sedation; Verbal order read back and verified. 16:16:53 Fentanyl 50 mcg I.V. was administered by Loreto Esparza RN; for sedation; Verbal order read back and verified. 16:22:28 Procedure started. 16:22:29 Full Disclosure recording started 16:22:44 Local anesthetic to right femoral artery with Lidocaine 2% by Dennis Niño MD.INITIAL ACCESS ONLY 16:22:55 Fentanyl 50 mcg I.V. was administered by Loreto Esparza RN; for sedation; Verbal order read back and verified. 16:23:02 A 5 Fr sheath was inserted into the Right Femoral artery 16:24:09 A MULTIPACK JL 4.0 5Fr catheter was advanced over the wire and used for Procedure. 16:24:11 LCA angiography performed. 16:26:03 Catheter removed. 16:26:11 A MULTIPACK 3DRC 5Fr catheter was advanced over the wire and used for Procedure. 16:27:22 RCA angiography performed. 16:27:52 Catheter removed. 16:27:59 A MULTIPACK Pigtail 5 Fr catheter was advanced over the wire and used for Ventriculography. 16:30:47 SHEATH 6FR [place] (DZY879) opened to sterile field. 16:30:48 WHISPER 300cm guide wire ([id number]) opened to sterile field. 16:30:49 INFLATOR Merit BasixCompak (QU7360) opened to sterile field. 16:30:49 GUIDE 6FR HS I catheter (LA6HSI) opened to sterile field. 16:31:05 LV gram done using TRUJILLO 16:31:12 EF : 55 % 16:31:15 Catheter removed. 16:31:17 Proceeding to intervention. 16:31:24 Sheath upsized to a 6 Fr Short. 16:31:34 6 Fr hs1 guide catheter was inserted over the wire 16:31:38 whisper wire advanced. 16:32:34 Heparin Bolus 5000 units I.V. was administered by Loreto Esparza RN; used for procedure; verified with Dr. Spring Verbal order read back and verified. 16:32:52 Integrilin (Bolus 2mg/ml) 7.9 ml I.V. was administered by Loreto Esparza RN; for antiplatelet therapy; Verbal order read back and verified. 16:33:11 Integrilin (Bolus 2mg/ml) 2.1 ml wasted was administered by Loreto Esparza RN; for antiplatelet therapy; Verbal order read back and verified. 16:36:12 Plavix 600 mg P.O. was administered by Loreto Esparza RN; for antiplatelet therapy; Verbal order read back and verified. 16:37:37 Place stent Inflation Number: 1 A PAULINA OTW 3.0 x 18 stent ([id number]) was prepped and advanced across the Mid RCA 80. The stent was deployed at 14 ALYSON for 0:22 (min:sec) 0. 16:38:29 Inflation number: 2 The stent balloon was then re-inflated across the Mid RCA 0 to 16 ALYSON for 0:36 (min:sec) . 16:38:52 Stent balloon re-inserted over wire. 16:41:31 Place stent Inflation Number: 1 A PAULINA RX 3.0 x 18 stent ([id number]) was prepped and advanced across the Prox RCA 80. The stent was deployed at 14 ALYSON for 0:51 (min:sec) 0. 16:41:43 EXOSEAL 6Fr (EX600) opened to sterile field. 16:41:51 Stent balloon re-inserted over wire. 16:43:31 Procedure ended.(Physican Out) 16:44:01 Fluoroscopy time 04.70 minutes. 16:44:05 Fluoroscopy dose: 741 mGy 16:44:05 Flurop Dose total: 741 16:44:12 Dose Area Product 40071 mGy/cm. 16:44:18 Contrast amount:Isovue 300 99ml. 16:44:20 Maximum allowable dose exceeded? No. 16:44:21 Sharps counted by scrub and verified by R.N. 16:44:22 Insertion/operative site no bleeding no hematoma. 16:44:34 Post-op/insertion site Right Femoral artery dressed using a 4 x 4 and Tegaderm. 16:44:39 Post right femoral artery:stable 16:44:46 Post-procedure physical assessment completed. ASA score P 3 - A patient with severe systemic disease as per Dennis Niño MD. 16:44:50 Post procedure rhythm: sinus rhythm 16:44:53 Estimated blood loss: 10 ml 16:44:55 Post procedure instruction explained to patient.Patient verbalizes understanding. 16:44:57 Patient needs reinforcement of post procedure teaching. 16:45:15 Procedure type changed to Cath procedure, Diagnostic procedure, LHC, LHC w/Coronaries, Sedation Charges, Moderate Sedation up to 30 minutes, PCI procedure, Coronary Stent, Hemochron ACT Test 16:45:17 Procedure and supply charges have been captured, reviewed, submitted and are correct. 16:45:58 Procedure Complication : No complications 16:46:01 Vital chart was stopped 16:46:04 LHC Findings: MVD- PCI performed (see procedure note) 16:46:16 Patient transfered to [facility] with Bed. 16:46:19 Procedure ended. 16:46:19 Full Disclosure recording stopped 16:46:26 End room use (Document Last) 16:51:31 End room use (Document Last) 16:51:52 End room use (Document Last) 16:52:10 ACC-PCI Only Patient was given prescriptions, or instructed by Dennis Niño MD to start/continue the following medications upon discharge: Plavix 16:52:31 ACT drawn and resulted at 176 seconds. (normal therapeutic range 180-240 seconds). Intervention Summary Intervention Notes Time ActionType Lesion and Equipment Used Action# Pressure Duration Attributes 16:37:37 Place stent Mid RCA PAULINA OTW 3.0 x 1 14 00:22 18 stent ([id number]) 16:38:29 Reinflate Mid RCA PAULINA OTW 3.0 x 2 16 00:36 stent 18 stent balloon ([id number]) 16:41:31 Place stent Prox RCA PAULINA RX 3.0 x 1 14 00:51 18 stent ([id number]) Device Usage Item Name Manufacture Quantity Catalog Hospital Part [facility] Lot# / Number Charge Number Stock Stock Serial# Code ACIST Syringe Acist 1 31348 471379 766859 304414 20 (50070) Medical Systems Inc Bag Decanter Microtek 1 2001S 976688 39808 226874 5 (2001S) Medical Inc. Medline Cath Medline 1 [id number] 630645 29212 918545 5 Pack ([id number]) ACIST Hand Acist 1 14923 346827 019303 230969 5 Control Medical (47605) Systems Inc ACIST Manifold Acist 1 24565 376797 861791 937072 5 (45816) Medical Systems Inc Tegaderm 4 x 4 3M 1 1626W 029258 442202 585452 5 (1626W) SHEATH 5FR Terumo 1 HRL294 312473 955218 916261 5 [place] (LXY868) EMERALD Guide Cardinal 1 502-455 093907 110818 943148 5 Wire (502-455) Health DIAGNOSTIC Cardinal 1 SW0682 649481 92330 752909 30 Multipack 5Fr Health catheter set (SO8439) MULTIPACK JL Cardinal 1 450202 5 4.0 5Fr Health catheter MULTIPACK 3DRC Cardinal 1 437648 5 5Fr catheter Health MULTIPACK Cardinal 1 320400 5 Pigtail 5 Fr Health catheter SHEATH 6FR Terumo 1 VEN656 706250 277652 269695 40 [place] (FPO716) WHISPER 300cm Griffin 1 [id number] 630331 073520 679404 5 guide wire Vascular ([id number]) INFLATOR Merit Merit 1 KG1128 757603 462211 390323 15 [place]ault (CB6010) GUIDE 6FR HS I Medtronic 1 LA6HSI 046825 06795 023581 1 catheter (LA6HSI) PAULINA OTW 3.0 x Medtronic 1 [id number] 457994 6951673 491990 5 [id number] 18 stent ([id number]) PAULINA RX 3.0 x Medtronic 1 [id number] 482251 8223192 684545 5 [id number] 18 stent ([id number]) EXOSEAL 6Fr Cardinal 1 EX600 847759 672343 300219 10 (EX600) Health Signature Audit [place] Stage Time Signature Unsigned Intra-Procedure 01/30/2020 Ashley Varela 4:51:31 PM RT(R) Intra-Procedure 01/30/2020 Loreto Esparza 4:51:52 PM RN Intra-Procedure 01/30/2020 Dennis Rivera 4:53:11 PM Ian LINARES [address] [place] [address]
[~2020-01-29 14:06] MED LIST changes: +XARELTO10 MG PO
[2020-01-29 15:03] VITALS: BP 177/72
[2020-01-29 15:07] LABS: BASOPHILS 0.4 % (0-2); EOSINOPHILS 1.9 % (0-7); HEMATOCRIT 42.9 % (36.0-48.0); HEMOGLOBIN 13.8 g/dL (12-16); IMMATURE GRANULOCYTES 0.1 % (0-5); LYMPHOCYTES 26.3 % (15-50); MCHC 32.2 g/dL (31.0-37.0); MEAN PLATELET VOLUME 9.3 fL (7.4-10.4); MONOCYTES 6.4 % (2-11); NEUTROPHILS 64.9 % (40-80); PLATELET COUNT 188 10x3/uL (130-400); RBC 5.11 10x6/uL (4.00-5.40); RDW 13.5 % (11.5-14.5); WBC 7.5 10x3/uL (4.8-10.8)
[2020-01-29 15:15] LABS: APTT 38.6 SECONDS (22.8-39.4); CALC OSMOLALITY 280 mosm/kg (275-300); CALCIUM 9.6 mg/dL (8.5-10.1); CARBON DIOXIDE 26.6 mmol/L (21.0-32.0); CHLORIDE - SERUM 98 mmol/L (98-107); CREATININE - SERUM 0.6 mg/dL (0.6-1.3); INR 1.15 (0.85-1.17); POTASSIUM - SERUM 4.3 mmol/L (3.5-5.1); PROTIME 14.7 SECONDS (11.6-15.0); SODIUM 133 mmol/L (136-145); UREA NITROGEN 14 mg/dL (7-18); eGFR NON AFRICAN AMERICAN > 90 mL/min (90-120)
[2020-01-29 15:17] LABS: GLUCOSE 348 mg/dL (74-106)
[2020-01-29 15:44] LABS: ALKALINE PHOSPHATASE 117 U/L (30-120); ALT (SGPT) 19 U/L (10-68); BILIRUBIN - TOTAL 0.31 mg/dL (0.2-1.3); CKMB 0.5 U/L (0.0-3.6); CREATINE KINASE 26 UL (21-215); MAGNESIUM - SERUM 1.8 mg/dL (1.8-2.4); PROTEIN - SERUM 7.2 g/dL (6.4-8.2)
[2020-01-29 15:49] LABS: TROPONIN-I < 0.017 ng/mL (0.000-0.060)
--- NOTE | 2020-01-29 16:54 | NUR ---
FSBS 343. DR NOTIFIED
[2020-01-29 17:07] VITALS: BP 167/71
[2020-01-29 17:28] LABS: BILIRUBIN NEGATIVE (NEGATIVE); GLUCOSE 1000 mg/dL (NEGATIVE); KETONE NEGATIVE (NEGATIVE); NITRITE NEGATIVE (NEGATIVE); UROBILINOGEN NORMAL (NORMAL)
[2020-01-29 17:29] LABS: EPITHELIAL CELLS 0-5 /hpf (0-5); RED CELLS - URINE 0-5 /hpf (0-5)
[2020-01-29 17:35] LABS: BACTERIA FEW /hpf (NEGATIVE)
--- NOTE | 2020-01-29 20:22 | NUR ---
RECIEVED TO ROOM 2124 FROM ER VIA WC. PT A&O. VITALS STABLE. IV TO RIGHT AC WITH NS INFUSING AT 50 CC/HR. IV SITE CLEAN AND DRY. HISTORY AND MED REC COMPLETE. PT CURRENTLY DENIES PAIN. SHERBERT AND ICE WATER GIVEN, NO OTHER NEEDS VOICED AT THIS TIME.
--- NOTE | 2020-01-29 21:58 | NUR ---
HS MEDS GIVEN WITH FRESH ICE WATER. PT REQUESTED TO ONLY TAKE HALF DOSE OF AMBIEN DUE TO POSSIBLY HAVING CONSCIOUS SEDATION IN THE MORNING IN THE GULLET SLITTER, 5 MG AMBIEN GIVEN, WILL RETURN OTHER 5 MG TO PYXIS.
[2020-01-29 22:29] LABS: CKMB 0.4 U/L (0.0-3.6); CREATINE KINASE 30 UL (21-215)
[2020-01-29 22:35] LABS: TROPONIN-I < 0.017 ng/mL (0.000-0.060)
[2020-01-30 01:22] VITALS: Ht 160 cm; Wt 90.9 kg
--- NOTE | 2020-01-30 02:45 | NUR ---
I have reviewed this patient and I concur with the Shift Assessment completed by the Licensed Practical Nurse today this shift.
[2020-01-30 02:52] LABS: BASOPHILS 0.4 % (0-2); EOSINOPHILS 2.7 % (0-7); HEMATOCRIT 42.9 % (36.0-48.0); HEMOGLOBIN 13.7 g/dL (12-16); IMMATURE GRANULOCYTES 0.3 % (0-5); LYMPHOCYTES 35.8 % (15-50); MCHC 31.9 g/dL (31.0-37.0); MCV 84.4 fL (80.0-100.0); MEAN PLATELET VOLUME 9.7 fL (7.4-10.4); MONOCYTES 7.4 % (2-11); NEUTROPHILS 53.4 % (40-80); PLATELET COUNT 202 10x3/uL (130-400); RBC 5.08 10x6/uL (4.00-5.40); RDW 13.7 % (11.5-14.5)
[2020-01-30 03:22] LABS: ALBUMIN 2.8 g/dL (3.4-5.0); ALKALINE PHOSPHATASE 114 U/L (30-120); ALT (SGPT) 16 U/L (10-68); BILIRUBIN - TOTAL 0.16 mg/dL (0.2-1.3); CALC OSMOLALITY 280 mosm/kg (275-300); CALCIUM 9.2 mg/dL (8.5-10.1); CHLORIDE - SERUM 100 mmol/L (98-107); CKMB 0.3 U/L (0.0-3.6); CREATINE KINASE 28 UL (21-215); CREATININE - SERUM 0.7 mg/dL (0.6-1.3); GLUCOSE 377 mg/dL (74-106); POTASSIUM - SERUM 4.7 mmol/L (3.5-5.1); PROTEIN - SERUM 6.9 g/dL (6.4-8.2); SODIUM 133 mmol/L (136-145); TROPONIN-I < 0.017 ng/mL (0.000-0.060); UREA NITROGEN 12 mg/dL (7-18); eGFR NON AFRICAN AMERICAN 88 mL/min (90-120)
[2020-01-30 04:00] VITALS: BP 144/73
[2020-01-30 09:00] VITALS: BP 141/77
[2020-01-30 09:00] LABS: CHOL - HDL RATIO 4.4 ratio (2.3-4.1); LDL-HDL RATIO 2.3 ratio (1.5-3.5)
[2020-01-30 12:00] VITALS: BP 156/58
--- NOTE | 2020-01-30 15:26 | CN ---
PATIENT NAME:CHANEL VILLEGAS MEDICAL RECORD: [id number] : 50 LOCATION:D.M2 D.2125 ADMIT DATE: 01/29/20 ACCOUNT: [id number] CONSULTING PHYSICIAN: RON SOTOMAYOR MD REFERRING PHYSICIAN: NARGIS SAVAGE MD DATE OF CONSULTATION: 01/30/2020 HISTORY OF PRESENT ILLNESS: A 69-year-old lady with a history of coronary artery disease, atrial fibrillation, sick sinus syndrome, status post pacemaker placement, admitted with chest tightness, pressure consistent with her angina. Pacemaker interrogation shows atrial fibrillation, suspect this is primary ischemic focus. Last intervention approximately 3 years ago. We are asked to see her concerning her cardiovascular status. MEDICATIONS: Include Xarelto 10 mg p.o. daily, losartan 100 mg p.o. daily, amlodipine 10 at bedtime, Pravachol 20 every day, Ativan 1 mg p.o. b.i.d., Ambien 10 at bedtime, Lasix 80 every day, Prevacid 30 every day, Synthroid 50 mcg every day, insulin per scale. ALLERGIES: LOPRESSOR, IMDUR, PENICILLIN, CODEINE, MACROBID. SOCIAL HISTORY: Smokes about a pack a day, nondrinker. Has some difficult with her ADLs with dyspnea. REVIEW OF SYSTEMS: The patient reports easy bruising but reports no swollen glands. The patient reports no fever, no night sweats, no significant weight gain, no significant weight loss. No significant exercise tolerance. The patient reports no dry eyes, no irritation, no vision change. Patient reports no difficulty hearing and no ear pain. Patient reports no frequent nose bleeds or nose and sinus problems. Patient reports on arm pain on exertion. No shortness of breath while lying down. No history of heart murmur. Patient reports no cough, no wheezing or coughing up blood. Patient reports no abdominal pain, no vomiting. Normal appetite. No diarrhea and not vomiting blood. No nausea and no constipation. Patient reports no incontinence. No difficulty urinating. No hematuria. No increased frequency. Patient reports no muscle aches. No weakness, no arthralgias, no back pain. No swelling of the extremities. Patient reports no abnormal mole, no jaundice, no rashes. Reports no loss of consciousness. No weakness and no numbness. No seizures, dizziness, or headaches. The patient reports no depression, no sleep disturbance, feeling safe in a relationship and no alcohol abuse. Patient reports on fatigue. Reports no runny nose or sinus pressure. No itching, no hives, and no frequent sneezing. PHYSICAL EXAMINATION: GENERAL: In no acute distress, appears stated age. VITAL SIGNS: Blood pressure 143/73, pulse 60 and regular. HEENT: Normocephalic, atraumatic. NECK: No JVD or bruit. HEART: Regular, II/ systolic ejection murmur. LUNGS: Prolonged expiratory phase with expiratory wheezes. ABDOMEN: Soft, nontender. EXTREMITIES: Pulse 2+ and no edema. IMPRESSION: Acute coronary syndrome, class III-IV angina. CONSULT REPORT [id number] CHANEL VILLEGAS PLAN: Angiography, intervention based on above. TRANSINT:[id number] Voice Confirmation ID: [id number] DOCUMENT ID: [id number] RON SOTOMAYOR MD at 1526 CC: [id number] DICTATION DATE: 01/30/2054 CLINICAL COORDINATOR: 01/30/20 1145 ADM IN [address] [place] [address]
[2020-01-30 16:28] VITALS: BP 136/63
--- NOTE | 2020-01-30 17:23 | NUR ---
PT BACK FROM LOADER HELPER SORTING YARD. RIGHT GROIN INCISION CLEAN AND DRY. PT INSTRUCTED TO LIE FLAT FOR 4 HOURS. ASKING FOR PAIN MEDS AND FOOD. DINNER TRAY ORDERED BUT WILL HAVE TO BE CAREFUL EATING DUE TO POSITION. NEEDING TO VOID, LOG ROLL FOR BEDPAN.
--- NOTE | 2020-01-30 19:38 | NUR ---
ASSESSMENT COMPLETE. PT IN BED, RESTING WITH EYES CLOSED, RESPERATIONS NON LABORED, PT AROUSES TO VERBAL STIMULI. IV TO RIGHT AC WITH NS INFUSING AT 100 CC/HR, IV SITE CLEAN AND DRY. DRSG NOTED TO RIGHT GROIN, C/D/I. NO SWELLING, BLEEDING, OR HEMATOMA NOTED TO CATH SITE. NO NEEDS EXPRESSED AT THIS TIME. BED LOW, CL IN REACH.
[2020-01-30 20:00] VITALS: BP 178/65
--- NOTE | 2020-01-30 20:48 | NUR ---
CARDIOVASCULAR SONOGRAPHER AT BED SIDE TO OBTIAN VITALS AND PLACE PT ON BED SHAIKH. CARDIOVASCULAR SONOGRAPHER LEFT ROOM TO GIVEN PT PRIVACY, APPROXIMATELY 30 SECONDS PT BACK ON CL TO GET OFF BED SHAIKH, THIS NURSE WENT IN ROOM WITH CARDIOVASCULAR SONOGRAPHER TO ASSIST. PT STARTED YELLING AT THE CARDIOVASCULAR SONOGRAPHER BEFORE SHE EVEN PLACED HANDS ON THE BED SHAIKH THAT CARDIOVASCULAR SONOGRAPHER WAS SPILLING THE URINE OUT OF THE BED SHAIKH, CARDIOVASCULAR SONOGRAPHER GRABBED THE LEFT SIDE OF THE BED SHAIKH AND PT ROLLED OVER TO HER RIGHT SIDE, PT SLAPPED HER HAND BEHIND HER AND PLACED HER HAND DIRECTLY INTO UNRINE FILLED BED SHAIKH, THEN PT STATED TO THE CARDIOVASCULAR SONOGRAPHER, " SEE I TOLD YOU, YOU WERE SPILLING IT" NURSE GAVE PT A WET CLOTH TO CLEAN HANDS CARDIOVASCULAR SONOGRAPHER WIPPED PTS BACK SIDE. PT THEN ROLLED ON TO HER BACK AND YELLED THAT HER PAD WAS WET, PADDING TO BED WAS CHANGED EVEN THOUGH IT WAS COMPLETELY DRY. PT ASKED FOR A DINNER TRAY, STATED THAT SHE OLNY RECIEVED ONE MEAL TODAY, (CARDIOVASCULAR SONOGRAPHER HAD JUST CARRIED OUT PTS EMPTY DINNER TRAY), NURSE OFFERED PT A SANDWICH TRAY, PT HUFFED AND STATED " I DONT EVEN EAT SANDWICHES" INFORMED PT THAT KITCHEN IS CLOSED BUT I WILL FIND HER SOMETHING TO EAT, FOOD AND SNACKS PROVIDED ALONG WITH SWEET TEA PT REQUEST. REPOSITIONED IN BED FOR COMFORT. CL IN REACH. BED IN LOWEST PT.
--- NOTE | 2020-01-30 21:31 | NUR ---
PT YELLING OUT THAT SHE NEEDS TO PEE, KENYON BARRIENTOS ALONG WITH AGUSTIN BARRIENTOS AT BED SIDE, ASSISTED PT UP TO BSC.
--- NOTE | 2020-01-30 21:55 | NUR ---
HS MEDS GIVEN WITH FRESH ICE WATER. BS 179, INSULIN REFUSED, DUE TO PT "NOT EATING ALL DAY" AMBIEN 5 MG GIVEN, PT ASKED TO TAKE HALF OF DOSE THAT WAS ORDERED, ONE AMBIEN TABLET RETURNED TO PYXIS. AFTER MEDICATION WAS OPENED, PT STATED THAT SHE NO LONGER NEEDED PAIN MEDICATION, 2 NORCO 10/325 TABLETS WASTED IN PYXIS AND TABLETS PLACED IN APPROPIATE BIN TO DISPOSE OF.
--- NOTE | 2020-01-31 00:09 | NUR ---
RESTING WITH EYES CLOSED, RESPRATIONS EVEN, NO S/S DISTRESS NOTED.
--- NOTE | 2020-01-31 02:12 | NUR ---
2 CUPS OF GIVEN AT PT REQUEST. PT DENIES PAIN OR OTHER NEEDS.
--- NOTE | 2020-01-31 04:12 | NUR ---
RESTING WITH EYES CLOSED, RESPERATIONS NON LABORED, PTS PERSONAL C-PAP IN USE. NO S/S DISTRESS NOTED. BED LOW, CL IN REACH.
--- NOTE | 2020-01-31 05:11 | NUR ---
AM BS 265, COVERED PER S/S. FRESH ICE WATER GIVEN. PT DENIES NEEDS.
[2020-01-31 09:00] VITALS: BP 160/65
--- NOTE | 2020-01-31 09:27 | OP ---
PATIENT NAME: CHANEL VILLEGAS MEDICAL RECORD: [id number] :50 LOCATION:D.M2 D.2125 ADMISSION DATE:01/30/20 SURGEON: RON SOTOMAYOR MD DATE OF OPERATION: 01/30/2020 PROCEDURE: Left heart catheterization, selective coronary angiography, right femoral artery approach. CATHETERS: A 5-Lebanese sheath, 5/4 left and right Marnie, 5/4 pig. The procedure was well tolerated. The patient returned to the campuzano. Sheath removed. ExoSeal device placed. FINDINGS: Left ventriculography in 30-degree TRUJILLO view; normal wall motion. Normal systolic function. CORONARY ANATOMY: LEFT MAIN: Left main is free of disease. LAD: Previously placed stent is widely patent. No evidence of restenosis. No progression of picayune disease. CIRCUMFLEX: Widely patent stent, no evidence of restenosis. RIGHT CORONARY ARTERY: Has 2 previously placed stents, these themselves are widely patent. Distal to the second stent about 80% stenosis and in between the 2 stents is an 80% stenosis. PLAN: Intervention momentarily. DESCRIPTION OF PROCEDURE: A 5-Lebanese sheath was exchanged for a 6-Lebanese sheath. A 300 cm Whisper wire placed across both 80% stenosis in the right. Stents deployed were a 3.0 x 15 and 3.0 18, more proximally both at 14 atmospheres for 45 seconds. Final angiography showed excellent resolution of two sequential 80% stenosis, no significant residual. SMOOTH flow was 3 throughout the procedure. Heparin and Integrilin were used during the case. Plavix was loaded in the lab. Sheath was closed with ExoSeal device. TRANSINT:[id number] Voice Confirmation ID: [id number] DOCUMENT ID: [id number] RON SOTOMAYOR MD at 0927 CC: [id number] DICTATION DATE: 01/30/20 1657 SENIOR INFRASTRUCTURE ENGINEER: 01/31/20 0436 [place] [address]
--- NOTE | 2020-01-31 09:32 | NUR ---
PT RESTING WITH CPAP IN PLACE.
[2020-01-31] MEDS ORDERED: PLAVIX75 MG PO (11:43)
[2020-01-31] MEDS ORDERED: LOW DOSE ASPIRI81 M1 PO (11:44)
[2020-01-31] MEDS ORDERED: NICODERM CQ1 EAC2 TOPICAL (12:00)
--- NOTE | 2020-01-31 12:09 | NUR ---
SPOKE WITH DR SOTOMAYOR REGARDING PT NEED TO TAKE ASPIRIN 81 MG SINCE ON PLAVIX AND XARELTO. PER DR SOTOMAYOR PT TO TAKE FOR ONE MONTH ONLY.
--- NOTE | 2020-01-31 14:06 | NUR ---
PT'S SON HERE TO TRANSPORT HOME. IV REMOVED. DISCHARGE INSTRUCTIONS REVIEWED. WHEELED TO EXIT VIA WHEELCHAIR. DR SAVAGE IN ROOM PRIOR TO DISCHARGE.
== END 2020-01-31 14:07 | disposition home or self-care (01) | DRG 247 ==
LOC: D.ER 14:06 → D.M2 15:35 → OBSVTIME 15:35 → D.M2 15:35 → D.SDCHOLD 01-30 09:13 → D.M2 01-30 09:13
PROVIDERS: Family Medicine; Internal Medicine Interventional Cardiology; ADMIT Emergency Medicine; ATTEND Emergency Medicine
PROC: B2111ZZ Fluoroscopy of Multiple Coronary Arteries using Low Osmolar Contrast (ICD-10-PCS; 2020-01-30)
PROC: B2151ZZ Fluoroscopy of Left Heart using Low Osmolar Contrast (ICD-10-PCS; 2020-01-30)
PROC: 027035Z Dilation of Coronary Artery, One Artery with Two Drug-eluting Intraluminal Devices, Percutaneous Approach (ICD-10-PCS; principal; 2020-01-30 15:50)
PROC: 4A023N7 Measurement of Cardiac Sampling and Pressure, Left Heart, Percutaneous Approach (ICD-10-PCS; 2020-01-30 15:50)
DX: I25.110 Atherosclerotic heart disease of native coronary artery with unstable angina pectoris (principal); E11.40 Type 2 diabetes mellitus with diabetic neuropathy, unspecified; I10 Essential (primary) hypertension; I48.91 Unspecified atrial fibrillation; Z79.01 Long term (current) use of anticoagulants; K76.0 Fatty (change of) liver, not elsewhere classified; J44.9 Chronic obstructive pulmonary disease, unspecified; K21.9 Gastro-esophageal reflux disease without esophagitis; L40.9 Psoriasis, unspecified; F41.8 Other specified anxiety disorders; Z95.0 Presence of cardiac pacemaker; Z86.718 Personal history of other venous thrombosis and embolism

== ENCOUNTER 2020-02-04 21:16 | Inpatient (IN) | payer MEDICARE, OTHER ==
[~2020-02-04] VITALS: Ht 160 cm; Wt 92.7 kg
--- NOTE | ~2020-02-04 | HEMODYNAMI ---
PATIENT:CHANEL VILLEGAS MEDICAL RECORD: [id number] : 50 LOCATION:[facility] D.2115 [facility]# [id number] ADMISSION DATE: 02/04/20 Generatedon:02/05/202012:14 Patient name: CHANEL VILLEGAS Patient #: [id number] : 1950 Date of study: 02/05/2020 Page: Of Hemodynamic Procedure Report Patient Data Patient Demographics Procedure consent was obtained First Name: CHANEL Gender: Female Last Name: NELLY : 1950 [facility] Initial: PALMER Age: 69 year(s) Patient #: [id number] Race: SSN: [id number] Additional ID: [id number] Contact details [address]: [address] [place] [address] street State: [place] City: [place] Zip code: [address] Past Medical History History of disease Date Diagnosis Comments CAD PVD Allergies Allergen Reaction Date Comments Reported Other allergy 04/26/2016 Isosorbide, nononitrate, IImdur, PCN, Chlorohexadine, Exenatide, Metoprolol Tartrate, Topriramate, Codeine Other allergy 01/30/2020 see chart Other allergy 02/05/2020 IMDUR, PCN, CHLORHEXIDINE, EXENATIDE, METOPROLOL, TOPAMAX, CODEINE, DILITIAZEM, NITRO Admission Admission Data Admission Date: 02/04/2020 Admission Time: 23:21 Arrival Date: 02/04/2020 Arrival Time: 23:21 Admit Source: Emergency Insurance Payor: Medicare department [facility] #: [id number] Room #: D.2115 Height (in.): 62.99 BSA: 1.95 (m2) Height (cm.): 160 BMI: 35.94 (kg/m2) Weight (lbs.): 202.83 Weight (kg.): 92 Lab Results Lab Result Date: 02/05/2020 Lab Result Time: 0:00 Biochemistry Name Units Result Min Max BUN mg/dl 13 --(--*-)-- 7 18 Creatinine mg/dl 0.5 -*(----)-- 0.6 1.3 eGFR ml/min 90 --(*---)-- 90 120 NONAFRICAN CBC Name Units Result Min Max Hemoglobin g/dl 11.8 *-(----)-- 13.5 17.5 Procedure Procedure Types Cath Procedure Diagnostic Procedure [facility] w/Coronaries Sedation Charges Moderate Sedation up to 15 minutes PCI Procedure PTCA PTCA Initial Hemochron ACT Test Procedure Description Procedure Date Procedure Date: 02/05/2020 Procedure Start Time: 11:47 Procedure End Time: 12:09 Procedure Staff Name Function Dennis Niño MD Performing Physician Katie Huynh RT Monitor Ashley Varela RT Scrub Loreto Esparza RN Nurse Procedure Data Cath Procedure Fluoroscopy Diagnostic fluoroscopy Total fluoroscopy Time: 4.3 time: 4.3 min min Diagnostic fluoroscopy Total fluoroscopy dose: 724 dose: 724 mGy mGy Contrast Material Contrast Material Type Amount (ml) Isovue 300 73 Entry Location Entry Primary Successful Side Size Upsize Upsize Entry Closure Succes sful Closure Location (Fr) 1 (Fr) 2 (Fr) Remarks Device Remarks Femoral Right 5 Fr Exoseal artery Estimated blood loss: 5 ml Diagnostic catheters Device Type Used For End Catheter Placement MULTIPACK JL 4.0 5Fr Left Coronary catheter Angiography MULTIPACK 3DRC 5Fr Right Coronary catheter Angiography MULTIPACK Pigtail 5 Fr LV Angiography catheter Procedure Complications No complications Procedure Medications Medication Administration Route Dosage 0.9% NaCl I.V. 100 ml/hr Oxygen etCO2 Nasal cannula 2 l/min Lidocaine 2% added to field 20 Heparin Flush Bag added to field 2 bags (1000units/500ml NS) Versed I.V. 2 mg Fentanyl I.V. 50 mcg Fentanyl I.V. 50 mcg Heparin Bolus I.V. 5000 units Integrilin (Bolus I.V. 8.5 ml 2mg/ml) Integrilin (Bolus I.V. 1.5 ml 2mg/ml) Plavix P.O. 600 mg Integrilin (Bolus I.C. 8.5 ml 2mg/ml) Integrilin (Bolus I.C. 1.5 ml 2mg/ml) Nitroglycerin IC/IA I.C. 200 mcg Hemodynamics Rest BSA: 1.95 (m2) HGB: 11.8 (g/dl) O2 Consumption: Estimated: 203.51 (ml/min) O2 Co nsumption indexed: Estimated:104.36 (ml/min/m) Heart Rate: 102 (bpm) Pressure Samples Time Site Value (mmHg) Purpose Heart Use Rate(bpm) 11:51 LV 174/17,25 Snapshot 65 Gradients Valve Time Site Site Mean SEP/DFP Peak To Heart Use 1 2 (mmHg) (sec/min) Peak Rate (mmHg) (bpm) Aortic 11:51 LV AO 71 Snapshots Pre Cath Intra NCS Post Cath Vital Signs Time Heart Resp SPO2 etCO2 NIBP (mmHg) Rhythm Pain Sedation Rate (ipm) (%) (mmHg) Status Level (bpm) 11:22:56 99 29 97 28.6 160/40(71) Paced 0 (11) 10(A) , No pain 11:27:55 78 26 98 36.9 145/83(125) Paced 0 (11) 10(A) , No pain 11:32:01 70 26 98 35.3 158/85(133) Paced 0 (11) 10(A) , No pain 11:37:00 68 26 98 24.8 Measuring Paced 0 (11) 10(A) , No pain 11:37:59 76 25 97 17.6 159/90(135) Paced 0 (11) 10(A) , No pain 11:42:11 82 23 98 24 151/78(125) Paced 0 (11) 10(A) , No pain 11:47:02 86 19 96 45.1 172/87(142) Paced 0 (11) 9(A) , No pain 11:51:12 69 20 99 26.3 142/70(115) Paced 0 (11) 9(A) , No pain 11:56:11 83 20 96 42.9 Measuring Paced 0 (11) 9(A) , No pain 11:57:00 78 20 98 45.1 171/74(139) Paced 0 (11) 9(A) , No pain 12:01:12 64 22 98 41.3 170/84(145) Paced 0 (11) 9(A) , No pain 12:05:22 79 24 97 36.8 150/85(118) Paced 0 (11) 10(A) , No pain Medications Time Medication Route Dose Verified Delivered Reason Notes Effectiveness by by 11:21:32 0.9% NaCl I.V. 100 Dennis Dangelo used for ml/hr Rudyard Isaias procedure RN 11:21:38 Oxygen etCO2 2 Dennis Dangelo used for Nasal l/min [facility] procedure cannula RN 11:21:42 Lidocaine 2% added 20ml Dennis Collins for local to vial [facility] anesthetic field MD LINARES 11:21:46 Heparin Flush added 2 Dennis Collins used for Bag to bags [facility] procedure (1000units/500ml field MD LINARES NS) 11:46:45 Versed I.V. 2 mg Dennis Hulla for sedation St Ian Esparza MD RN 11:46:51 Fentanyl I.V. 50 Dennis Hulla for sedation mcg St Ian Esparza MD RN 11:52:23 Fentanyl I.V. 50 Dennis Hulla for sedation mcg St Ian Esparza MD RN 11:57:31 Heparin Bolus I.V. 5000 Dennis Dangelo for verif ied units [facility] anticoagulation with Dr. LINARES RN [place] 11:57:43 Integrilin I.V. 8.5 Dennis Hulla for (Bolus 2mg/ml) ml St Ian Esparza antiplatelet RN therapy 11:58:03 Integrilin I.V. 1.5 Dennis Hulla for (Bolus 2mg/ml) ml St Ian Esparza antiplatelet RN therapy 11:58:08 Plavix P.O. 600 Dennis Dangelo for mg St Ian Esparza antiplatelet RN therapy 12:02:14 Integrilin I.C. 8.5 Dennis Collins for (Bolus 2mg/ml) ml St Ian Niño antiplatelet MD LINARES therapy 12:02:24 Integrilin I.C. 1.5 Dennis Collins for (Bolus 2mg/ml) ml St Ian Niño antiplatelet MD LINARES therapy 12:04:20 Nitroglycerin I.C. 200 Dennis Collins for IC/IA mcg St Ian Whyte MD, MD Procedure Log Time Note 11:10:36 Informed consent obtained and on chart 11:10:41 Diagnostic Cath Status : Urgent 11:13:13 Admit Source: Emergency department 11:13:18 Arrival Date: 02/04/2020 11:21:00 PM 11:13:48 Insurance Payor : Medicare 11:14:15 Patient Height : 62.99 inches 11:14:17 Patient Weight : 202.83 lbs 11::39 Lab Result : eGFR NONAFRICAN 90 ml/min ::39 Lab Result : Creatinine 0.5 mg/dl ::39 Lab Result : BUN 13 mg/dl ::39 Lab Result : Hemoglobin 11.8 g/dl ::39 Hemodynamic formulas in Rest were re-calculated based on hemoglobin value from 02/05/2020 12:00:00 AM 11:15:48 Procedure Status Urgent Heart Cath (IP). 11:15:54 Loreto Esparza RN sent for patient. Start room use. 11:15:54 Time tracking: Regular hours (M-F 7:00 - 5:00) 11:15:58 Plan of Care:Hemodynamics will remain stable., Cardiac rhythm will remain stable., Comfort level will be maintained., Respiratory function will remain adequate., Patient/ family verbilizes understanding of procedure., Procedure tolerated without complication., Recovers from procedure without complications.. 11:16:03 Patient received from [place] II to CCL 2 Alert and oriented. Tansferred to table in Supine position. 11:16:05 Warm blankets applied, and jo ann hugger turned on for patient comfort. 11:16:05 Correct patient and procedure confirmed by team. 11:16:05 ECG and BP/O2 sat monitors applied to patient. 11:21:24 Vital chart was started 11:21:32 0.9% NaCl 100 ml/hr I.V. was administered by Loreto Esparza RN; used for procedure; Verbal order read back and verified. 11:21:38 Oxygen 2 l/min etCO2 Nasal cannula was administered by Loreto Esparza RN; used for procedure; Verbal order read back and verified. 11:21:42 Lidocaine 2% 20ml vial added to field was administered by Dennis Niño MD; for local anesthetic; Verbal order read back and verified. 11:21:46 Heparin Flush Bag (1000units/500ml NS) 2 bags added to field was administered by Dennis Niño MD; used for procedure; Verbal order read back and verified. 11:25:08 Baseline sample Acquired. 11:25:13 Full Disclosure recording started 11:25:19 H&P Date Dictated: 02/05/2020 New H&P dictated by physician.. 11:25:20 Pre-procedure instructions explained to patient. 11:25:20 Pre-op teaching completed and patient verbalized understanding. 11:25:22 Family in patients room. 11:25:24 Patient NPO since Midnight. 11:26:08 Patient allergic to Other allergyIMDUR, PCN, CHLORHEXIDINE, EXENATIDE, METOPROLOL, TOPAMAX, CODEINE, DILITIAZEM, NITRO 11:26:10 Is the patient allergic to Iodine/contrast media? No. 11:26:19 Is patient on blood thinner?No 11:26:36 PT STATES SHE WAS NOT TAKING HER PLAVIX 11:27:16 Patient diabetic? No. 11:28:05 Previous problem with sedation/anesthesia? No ? 11:28:06 Snore? Yes 11:28:07 Sleep apnea? Yes 11:28:08 Deviated septum? No 11:28:09 Opens mouth fully? Yes 11:28:10 Sticks out tongue? Yes 11:28:13 Airway obstruction? Yes COPD 11:28:15 Dentures? No ? 11:28:19 Pre procedure: right dorsailis pedis pulse 1+ Palpable, but thready & weak; easily obliterated 11:28:22 Patient pain scale 0/10 ?. 11:28:30 Lab results completed and on chart. 11:28:33 Right groin area was prepped with chlora-prep and draped in sterile fashion 11:28:34 Alarms reviewed by R. N. 11:28:35 Sharps counted by scrub and verified by R.N. 11:28:39 Use device set Femoral Dx 11:28:40 ACIST Syringe (36137) opened to sterile field. 11:28:41 Bag Decanter (2002S) opened to sterile field. 11:28:42 ACIST Hand Control (86783) opened to sterile field. 11:28:42 ACIST Manifold (65124) opened to sterile field. 11:28:43 Tegaderm 4 x 4 (1626W) opened to sterile field. 11:28:44 Medline Cath Pack ([id number]) opened to sterile field. 11:28:46 DIAGNOSTIC Multipack 5Fr catheter set (HB1118) opened to sterile field. 11:28:47 SHEATH 5FR [place] (HRT533) opened to sterile field. 11:28:47 EMERALD Guide Wire (865-091) opened to sterile field. 11::38 Rhythm: sinus rhythm 11::41 Baseline sample Acquired. 11:40:27 SCAI ASSESSMENT NOT WORKING ONLINE. 11:44:22 Physician arrived :: --------ALL STOP TIME OUT------ 11:44:23 Final Timeout: patient, procedure, and site verified with staff and physician. All members of the team are in agreement. 11:44:25 Right groin site verified by team. 11:44:28 Fire Safety Assessment: A--An alcohol-based skin anteseptic being used preoperatively., C--Open oxygen or nitrous oxide is being used., D--An ESU, laser, or fiber-optic light is being used. 11:44:33 Physical assessment completed. ASA score P 2 - A patient with mild systemic disease as per Dennis Niño MD. 11:44:40 1) 90+ Normal kidney functon but urine findings or structural abnormalities or genetic trait point to kidney disease. 11:44:43 Maximum allowable contrast dose (3.7 X eGFR X 0.75)250 ml. 11:44:47 Sedation plan: IV Moderate Sedation Medication:Versed, Fentanyl 11:45:11 Procedure started. 11:46:45 Versed 2 mg I.V. was administered by Loreto Esparza RN; for sedation; Verbal order read back and verified. 11:46:51 Fentanyl 50 mcg I.V. was administered by Loreto Esparza RN; for sedation; Verbal order read back and verified. 11:47:14 Local anesthetic to right femoral artery with Lidocaine 2% by Dennis Niño MD.INITIAL ACCESS ONLY 11:47:24 A 5 Fr sheath was inserted into the Right Femoral artery 11:48:02 A MULTIPACK JL 4.0 5Fr catheter was advanced over the wire and used for Left Coronary Angiography. 11:48:43 LCA angiography performed. 11:48:46 Injector settings: Ml/sec: 3, Volume: 6, 11:49:02 Catheter removed. 11:49:06 A MULTIPACK 3DRC 5Fr catheter was advanced over the wire and used for Right Coronary Angiography. 11:49:56 RCA angiography performed. 11:49:59 Injector settings: Ml/sec: 3, Volume: 6, 11:50:06 Pt arrived to CL from MED II w/ IV pigtail full of air and small amount of clot. IV pigtail removed and replaced w/ IV extention tubing by CL RN. 11:50:36 GUIDE 6FR HS I catheter (LA6HSI) opened to sterile field. 11:50:36 INFLATOR Merit BasixCompak (IR3834) opened to sterile field. 11:50:37 SHEATH 6FR [place] (BHE973) opened to sterile field. 11:50:49 WHISPER 300cm guide wire ([id number]) opened to sterile field. 11:51:00 Catheter removed. 11:51:06 A MULTIPACK Pigtail 5 Fr catheter was advanced over the wire and used for LV Angiography. 11:51:21 LV hemodynamics recorded. 11:51:22 LV gram done using TRUJILLO 11:51:24 Injector settings: Ml/sec: 5, Volume: 15, 11:51:29 EF : 35 % 11:51:35 Catheter removed. 11:51:52 6 Fr HS 1 guide catheter was inserted over the wire 11:52:23 Fentanyl 50 mcg I.V. was administered by Loreto Esparza RN; for sedation; Verbal order read back and verified. 11:53:03 ACC Pre-intervention SMOOTH Flow is 1. 11:53:10 Pre PCI Site: [place] pRCA has 100% stenosis. 11:54:18 WHISPER wire advanced. 11:57:00 Inflate balloon Inflation number: 1 A EUPHORA 3.0 x 20 Balloon ([id number]) was prepped and advanced across the Dist RCA 100, then inflated to 10 ALYSON for 0:30 (min:sec) . 11:57:18 Inflation number: 2 The EUPHORA 3.0 x 20 Balloon ([id number]) was reinflated across the Dist RCA , to 10 ALYSON for 0:30 (min:sec) . 11:57:31 Heparin Bolus 5000 units I.V. was administered by Loreto Esparza RN; for anticoagulation; verified with Dr. Spring Verbal order read back and verified. 11:57:32 Inflation number: 3 The EUPHORA 3.0 x 20 Balloon ([id number]) was reinflated across the Dist RCA , to 10 ALYSON for 0:30 (min:sec) . 11:57:43 Integrilin (Bolus 2mg/ml) 8.5 ml I.V. was administered by Loreto Esparza RN; for antiplatelet therapy; Verbal order read back and verified. 11:57:50 Inflation number: 4 The EUPHORA 3.0 x 20 Balloon ([id number]) was reinflated across the Dist RCA , to 10 ALYSON for 0:30 (min:sec) . 11:58:03 Integrilin (Bolus 2mg/ml) 1.5 ml I.V. was administered by Loreto Esparza RN; for antiplatelet therapy; Verbal order read back and verified. 11:58:08 Plavix 600 mg P.O. was administered by Loreto Esparza RN; for antiplatelet therapy; Verbal order read back and verified. 11:58:52 Inflation number: 5 The EUPHORA 3.0 x 20 Balloon ([id number]) was reinflated across the Dist RCA , to 14 ALYSON for 0:30 (min:sec) . 11:59:19 Inflation number: 1 The EUPHORA 3.0 x 20 Balloon ([id number]) was reinflated across the Prox RCA , to 14 ALYSON for 0:30 (min:sec) . 12:00:23 Inflation number: 6 The EUPHORA 3.0 x 20 Balloon ([id number]) was reinflated across the Dist RCA , to 8 ALYSON for 0:30 (min:sec) . 12:02:14 Integrilin (Bolus 2mg/ml) 8.5 ml I.C. was administered by Dennis iNño MD; for antiplatelet therapy; Verbal order read back and verified. 12:02:24 Integrilin (Bolus 2mg/ml) 1.5 ml I.C. was administered by Dennis Niño MD; for antiplatelet therapy; Verbal order read back and verified. 12:04:20 Nitroglycerin IC/IA 200 mcg I.C. was administered by Dennis Niño MD; for vasodilation; Verbal order read back and verified. 12:06:09 Balloon removed over the wire. 12:06:11 Wire removed. 12:06:12 Guide catheter removed. 12:06:19 Sheath removed intact; hemostasis achieved with Exoseal to the Right Femoral artery. 12:06:31 Tegaderm 4 x 4 (1626W) opened to sterile field. 12:06:33 SHEATH 6FR [place] (VUJ926) opened to sterile field. 12:06:36 Procedure ended.(Physican Out) 12:06:44 Fluoroscopy time 04.30 minutes. 12:06:48 Flurop Dose total: 724 12:06:48 Fluoroscopy dose: 724 mGy 12:06:53 Dose Area Product 82679 mGy/cm. 12:06:57 Contrast amount:Isovue 300 73ml. 12:07:06 Maximum allowable dose exceeded? No. 12:07:07 Sharps counted by scrub and verified by R.N. 12:07:08 Insertion/operative site no bleeding no hematoma. 12:07:10 Post-op/insertion site Right Femoral artery dressed using a 4 x 4 and Tegaderm. 12:07:13 Post right femoral artery:stable 12:07:15 Post Procedure Pulses reassessed and unchanged 12:07:17 Post procedure rhythm: unchanged. 12:07:19 Estimated blood loss: 5 ml 12:07:21 Post procedure instruction explained to patient.Patient verbalizes understanding. 12:07:22 Patient needs reinforcement of post procedure teaching. 12:07:31 Procedure type changed to Cath procedure, Diagnostic procedure, LHC, C w/Coronaries, Sedation Charges, Moderate Sedation up to 15 minutes, PCI procedure, PTCA, PTCA Initial, Hemochron ACT Test 12:08:14 Procedure and supply charges have been captured, reviewed, submitted and are correct. 12:08:18 Procedure Complication : No complications 12:08:37 Vital chart was stopped 12:08:40 [facility] Findings: MVD- PCI performed (see procedure note) 12:08:41 Operative report dictated upon procedure completion. 12:08:42 See physician's report for complete and final results. 12:08:55 Report given to [facility]. 12:08:57 Patient transfered to [facility] with Stretcher. 12:09:00 Procedure ended. 12:09:00 Full Disclosure recording stopped 12:09:09 ACC-PCI Only Patient was given prescriptions, or instructed by Dennis Niño MD to start/continue the following medications upon discharge: Plavix 12:09:10 End room use (Document Last) 12:12:21 EXOSEAL 6Fr (EX600) opened to sterile field. 12:12:47 ACT drawn and resulted at 372 seconds. (normal therapeutic range 180-240 seconds). 12:13:42 ACT drawn and resulted at ? seconds. (normal therapeutic range 180-240 seconds). Intervention Summary Intervention Notes Time ActionType Lesion and Equipment Action# Pressure Duration Attributes Used 11:57:00 Inflate Dist RCA EUPHORA 1 10 00:30 balloon 3.0 x 20 Balloon ([id number]) 11:57:18 Reinflate Dist RCA EUPHORA 2 10 00:30 balloon 3.0 x 20 Balloon ([id number]) 11:57:32 Reinflate Dist RCA EUPHORA 3 10 00:30 balloon 3.0 x 20 Balloon ([id number]) 11:57:50 Reinflate Dist RCA EUPHORA 4 10 00:30 balloon 3.0 x 20 Balloon ([id number]) 11:58:52 Reinflate Dist RCA EUPHORA 5 14 00:30 balloon 3.0 x 20 Balloon ([id number]) 11:59:19 Reinflate Prox RCA EUPHORA 1 14 00:30 balloon 3.0 x 20 Balloon ([id number]) 12:00:23 Reinflate Dist RCA EUPHORA 6 8 00:30 balloon 3.0 x 20 Balloon ([id number]) Device Usage Item Name Manufacture Quantity Catalog Hospital Part Current Minimal L ot# / Number Charge Number Stock Stock Serial# Code ACIST Acist 1 42116 052703 479860 075089 20 Syringe Medical (86844) Systems Inc Bag Microtek 1 2001S 281079 00002 145654 5 Decanter Medical Inc. () ACIST Hand Acist 1 15002 239938 210578 601848 5 Control Medical (35949) Systems Inc ACIST Acist 1 16345 916706 130301 694252 5 Manifold Medical (82254) Systems Inc Tegaderm 4 3M 2 1626W 677442 144488 276124 5 x 4 (1626W) Medline Medline 1 [id number] 384799 06787 114643 5 Cath Pack ([id number]) DIAGNOSTIC Cardinal 1 CJ3726 788691 27876 575537 30 [facility] 5Fr catheter set (VB2690) SHEATH 5FR Terumo 1 PZX247 360571 664595 964028 5 [place] (ZYC084) EMERALD Cardinal 1 042-455 749094 507099 376503 5 Guide Wire Health (502455) MULTIPACK Cardinal 1 286574 5 JL 4.0 5Fr Health catheter MULTIPACK Cardinal 1 255652 5 3DRC 5Fr Health catheter GUIDE 6FR Medtronic 1 LA6HSI 716350 32584 905902 1 HS I catheter (LA6HSI) INFLATOR Merit 1 SN8414 490115 507498 345047 15 [facility] Medical BasixCompak (RC6272) SHEATH 6FR Terumo 2 FYW366 550573 256234 869180 40 [place] (FON479) WHISPER Griffin 1 [id number] 475148 672901 761981 5 300cm guide Vascular wire (0181021DH) MULTIPACK Cardinal 1 250952 5 Pigtail 5 Health Fr catheter EUPHORA 3.0 Medtronic 1 [id number] 147448 309072 016598 5 2 [id number] x 20 Balloon ([id number]) EXOSEAL 6Fr Cardinal 1 EX600 263305 929800 859216 10 (EX600) Health Signature Audit [place] Stage Time Signature Unsigned Intra-Procedure 02/05/2020 Katie Huynh 12:13:17 PM RT(R) Intra-Procedure 02/05/2020 Loreto Esparza 12:13:42 PM RN Intra-Procedure 02/05/2020 Dennis Rivera 12:14:00 PM Ian LINARES Signatures Performing Physician : Signature : Dennis Niño MD Date : Time : Monitor : Katie Huynh RT Signature : Date : Time : Nurse : Loreto Esparza RN Signature : Date : Time : [place] [address] [place] [address]
--- NOTE | 2020-02-04 19:30 | NUR ---
RECEIVED BEDSIDE RPEORT. PATIENT IS ALERT AND ORIENTED, RESTING COMFORTABLY INBED. RESPIRATIONS ARE EVEN AND UNLABORED. NO S/S OF DISTRESS. NO C/O PAIN. CALLLIGHT WITHIN REACH. WILL CPOC.
[~2020-02-04 21:16] MED LIST changes: +LOW DOSE ASPIRI81 M1 PO; +NICODERM CQ1 EAC2 TOPICAL
[2020-02-04 21:38] VITALS: BP 94/51
[2020-02-04 21:57] LABS: BASOPHILS 0.3 % (0-2); EOSINOPHILS 1.6 % (0-7); HEMATOCRIT 38.3 % (36.0-48.0); HEMOGLOBIN 12.1 g/dL (12-16); IMMATURE GRANULOCYTES 0.2 % (0-5); LYMPHOCYTES 30.9 % (15-50); MCH 26.5 pg (26.0-34.0); MCHC 31.6 g/dL (31.0-37.0); MEAN PLATELET VOLUME 9.1 fL (7.4-10.4); MONOCYTES 7.5 % (2-11); NEUTROPHILS 59.5 % (40-80); RBC 4.56 10x6/uL (4.00-5.40); RDW 13.9 % (11.5-14.5); WBC 9.3 10x3/uL (4.8-10.8)
[2020-02-04 22:00] LABS: PLATELET COUNT 276 10x3/uL (130-400)
[2020-02-04 22:08] LABS: APTT 29.2 SECONDS (22.8-39.4); CALC OSMOLALITY 286 mosm/kg (275-300); CALCIUM 8.7 mg/dL (8.5-10.1); CARBON DIOXIDE 28.7 mmol/L (21.0-32.0); CHLORIDE - SERUM 103 mmol/L (98-107); CREATININE - SERUM 0.7 mg/dL (0.6-1.3); GLUCOSE 349 mg/dL (74-106); INR 0.99 (0.85-1.17); POTASSIUM - SERUM 3.8 mmol/L (3.5-5.1); PROTIME 13.1 SECONDS (11.6-15.0); SODIUM 136 mmol/L (136-145); UREA NITROGEN 16 mg/dL (7-18); eGFR NON AFRICAN AMERICAN 88 mL/min (90-120)
[2020-02-04 22:09] LABS: D-DIMER-QUANTITATIVE 0.41 ug/mLFEU (0.20-0.54)
[2020-02-04 22:24] LABS: ALBUMIN 2.6 g/dL (3.4-5.0); ALKALINE PHOSPHATASE 103 U/L (30-120); ALT (SGPT) 19 U/L (10-68); BILIRUBIN - TOTAL 0.29 mg/dL (0.2-1.3); C-REACTIVE PROTEIN 3.4 mg/dL (0.0-0.9); LIPASE 124 U/L (73-393); MAGNESIUM - SERUM 1.6 mg/dL (1.8-2.4); PRO BNP 54 pg/mL (0-125); PROTEIN - SERUM 6.5 g/dL (6.4-8.2); THYROID STIMULATING HORMONE 2.06 uIU/mL (0.36-3.74); TROPONIN-I 0.023 ng/mL (0.000-0.060)
[2020-02-04 22:34] VITALS: BP 129/66
[2020-02-04 23:16] VITALS: BP 145/75
--- NOTE | 2020-02-05 01:00 | NUR ---
PATIENT ARRIVED TO FLOOR VIA WHEELCHAIR. PATIENT IS ALERT AND ORIENTED. RESPIRATIONS ARE EVEN AND UNLABORED. NO S/S OF DISTRESS. NO C/O PAIN. CALL LIGHT WITHIN REACH.
[2020-02-05 01:12] VITALS: BP 159/70; Ht 160 cm; Wt 92.7 kg
--- NOTE | 2020-02-05 01:55 | NUR ---
PATIENT REQUESTING SOMETHING FOR PAIN. PATIENT ROCKING BACK AND FORTH IN BED. SLIPPING HER HANDS ON HER CHEST. PAGED MALISSA MAYNARD APN. 1-4 MG MORPHINE IV Q 4HOURS FOR CHEST PAIN GIVEN.
[2020-02-05 04:00] VITALS: BP 175/56
--- NOTE | 2020-02-05 05:36 | NUR ---
PATIENT YELLING FROM ROOM. RN WENT INTO ASSIST PATIENT. PATIENT BEGAN YELLING THAT SHE WANTED PAIN MEDICATION. AT THIS TIME I CHECKED THE PATIENTS BLOOD SUGAR. I WENT TO GET THE MORPHINE AND THE INSULIN, WENT BACK TO ROOM AND PATIENT REFUSED THE PAIN MEDICATION. PATIENT THAN GRABBED HER PHONE AND CALLED HER SON STATING THAT I WAS REFUSING TO GIVE HER THE PAIN MEDICATION. I WALKED OUT OF ROOM GOT ASSISTANCE FROM ANOTHER NURSE, WENT BACK TO ROOM AND ASKED THE PATIENT AGAIN WITH HER SON ON THE PHONE IF SHE WANTED THE PAIN MEDICATION. SHE STATED NO. I ASKED HER IF SHE WANTED HER INSULIN SHE STATED YES. PATIENT BEGAN YELLING AT AGAIN. I LEFT THE ROOM TO DEFUSE THE SITUATION. THE OTHER NURSE STAYED AND ANOTHER WENT IN. PATIENT IN EVENTUALLY TOOK THE PAIN MEDICATION AND THE INSULIN AND IS NO REFUSING TO LET US CHANGE HER WET BED. CALL LIGHT WITHIN REACH. WILL CPOC.
--- NOTE | 2020-02-05 05:51 | NUR ---
PATIENT ALLOWED THIS NURSE TO CHAMGE HER. PATIENT STATED SHE HAS AN ABSCESS ON HER VAGINAL AREA AND A CYST ON HER BUTTOCKS. CALL LIGHT WITHIN REACH. WILL CPOC.
[2020-02-05 08:03] LABS: ALBUMIN 2.7 g/dL (3.4-5.0); ALKALINE PHOSPHATASE 103 U/L (30-120); BILIRUBIN - TOTAL 0.19 mg/dL (0.2-1.3); CALCIUM 8.8 mg/dL (8.5-10.1); CARBON DIOXIDE 24.9 mmol/L (21.0-32.0); CHLORIDE - SERUM 102 mmol/L (98-107); CKMB 17.4 U/L (0.0-3.6); CREATINE KINASE 278 UL (21-215); MAGNESIUM - SERUM 1.7 mg/dL (1.8-2.4); POTASSIUM - SERUM 3.9 mmol/L (3.5-5.1); PROTEIN - SERUM 6.6 g/dL (6.4-8.2); SODIUM 134 mmol/L (136-145); UREA NITROGEN 13 mg/dL (7-18)
[2020-02-05 08:04] LABS: ALT (SGPT) 25 U/L (10-68); CALC OSMOLALITY 277 mosm/kg (275-300); CREATININE - SERUM 0.5 mg/dL (0.6-1.3); GLUCOSE 278 mg/dL (74-106); eGFR NON AFRICAN AMERICAN > 90 mL/min (90-120)
[2020-02-05 08:06] LABS: TROPONIN-I 5.384 ng/mL (0.000-0.060)
[2020-02-05 08:58] LABS: BASOPHILS 0.3 % (0-2); EOSINOPHILS 0.6 % (0-7); HEMATOCRIT 37.5 % (36.0-48.0); HEMOGLOBIN 11.8 g/dL (12-16); IMMATURE GRANULOCYTES 0.7 % (0-5); LYMPHOCYTES 24.3 % (15-50); MCH 26.6 pg (26.0-34.0); MCHC 31.5 g/dL (31.0-37.0); MCV 84.5 fL (80.0-100.0); MEAN PLATELET VOLUME 10.1 fL (7.4-10.4); MONOCYTES 6.7 % (2-11); NEUTROPHILS 67.4 % (40-80); PLATELET COUNT 243 10x3/uL (130-400); RBC 4.44 10x6/uL (4.00-5.40); WBC 7.2 10x3/uL (4.8-10.8)
[2020-02-05 09:04] VITALS: BP 142/68
[2020-02-05 10:16] LABS: CHOL - HDL RATIO 3.5 ratio (2.3-4.1)
--- NOTE | 2020-02-05 11:30 | NUR ---
PRE-OPS GIVEN. TO QUALITY ASSURANCE REPRESENTATIVE BY BED.
--- NOTE | 2020-02-05 12:50 | NUR ---
BACK FROM FINISHING RANGE SUPERVISOR. VS WNL. RIGHT GROIN STABLE WITH FEMSTOP INTACT. WILL MONITOR.
[2020-02-05 13:29] VITALS: BP 144/68
[2020-02-05 17:03] VITALS: BP 156/74
--- NOTE | 2020-02-05 18:10 | NUR ---
FEMSTOP OFF. BR UP. GROIN STABLE.
--- NOTE | 2020-02-05 19:13 | NUR ---
RECEIVED BEDSIDE REPORT. PATIENT IS RESTING COMFORTABLY IN BED. RESPIRATIONS ARE EVEN AND UNLABORED. NO S/S OF DISTRESS. NO C/O PAIN. CALL LIGHT WITHIN REACH. WILL CPOC.
[2020-02-05 20:00] VITALS: BP 138/67
[2020-02-06] VITALS: BP 124/61
[2020-02-06 04:00] VITALS: BP 127/69
[2020-02-06 06:27] LABS: BASOPHILS 0.2 % (0-2); EOSINOPHILS 0.2 % (0-7); HEMATOCRIT 36.7 % (36.0-48.0); HEMOGLOBIN 11.3 g/dL (12-16); IMMATURE GRANULOCYTES 0.2 % (0-5); LYMPHOCYTES 16.8 % (15-50); MCH 26.1 pg (26.0-34.0); MCHC 30.8 g/dL (31.0-37.0); MCV 84.8 fL (80.0-100.0); MEAN PLATELET VOLUME 9.4 fL (7.4-10.4); MONOCYTES 8.6 % (2-11); PLATELET COUNT 256 10x3/uL (130-400); RBC 4.33 10x6/uL (4.00-5.40); WBC 8.7 10x3/uL (4.8-10.8)
[2020-02-06 07:11] LABS: ALBUMIN 2.8 g/dL (3.4-5.0); ALKALINE PHOSPHATASE 104 U/L (30-120); ALT (SGPT) 40 U/L (10-68); BILIRUBIN - TOTAL 0.55 mg/dL (0.2-1.3); CALC OSMOLALITY 283 mosm/kg (275-300); CALCIUM 8.4 mg/dL (8.5-10.1); CARBON DIOXIDE 28.3 mmol/L (21.0-32.0); CHLORIDE - SERUM 101 mmol/L (98-107); CREATININE - SERUM 0.5 mg/dL (0.6-1.3); GLUCOSE 286 mg/dL (74-106); MAGNESIUM - SERUM 1.7 mg/dL (1.8-2.4); POTASSIUM - SERUM 4.1 mmol/L (3.5-5.1); PROTEIN - SERUM 6.2 g/dL (6.4-8.2); SODIUM 137 mmol/L (136-145); UREA NITROGEN 13 mg/dL (7-18); eGFR NON AFRICAN AMERICAN > 90 mL/min (90-120)
[2020-02-06 08:01] VITALS: BP 129/69
[2020-02-06] MEDS ORDERED: NICODERM CQ1 EAC3 TRANSDERM (11:48)
[2020-02-06] MEDS ORDERED: PLAVIX75 MG PO (11:49)
[2020-02-06 12:13] VITALS: BP 131/76
--- NOTE | 2020-02-06 12:47 | MORECARE ---
CASE MANAGEMENT DISCHARGE SUMMARY PATIENT: CHANEL VILLEGAS UNIT: [id number] ADM DATE: 02/05/20 AGE: 69 : 50 SEX: F ROOM/BED: D.4851 AUTHOR: ROBERT,DOC PHYSICIAN: REFERRING PHYSICIAN: RON CARRERA MD DATE OF SERVICE: 02/06/20 Discharge Plan Patient Name: CHANEL VILLEGAS Facility: [facility]:[place] : 1950 Planned Disposition: Home Anticipated Discharge Date: 02/06/20 Discharge Date: Expected LOS: 1 Initial Reviewer: [email or web address] Initial Review Date: 02/05/2020 Generated: 02/06/20 1:47 pm Comments DCP- Discharge Planning Updated by [email or web address]: Maty Lux on 02/06/20 11:[address] CM met with patient to discuss initial discharge planning. Patient is in agreement to proceed with the assessment. Patient reports that she lives at home independently with her two sons. Patient states that her sons assist her in her care. Patient is alert/oriented. Stairs/steps: 2, w/rails. PCP: Dr. Morales. Pharmacy: [facility], next to [facility]. Patient states she has been able to obtain all of her prescribed medications. HHS: Declines. Patient signed a denial for HHS. DME: 2 C-Pap's, walker, electric/c, glucometer, shower chair. Patient gives permission to speak with family members/care givers. Emergency contact: Ej Villegas (son) [phone]. 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 CM discussed the availability of HH, Rehab, SNF, OP Therapy, DME services. Patient denies the need for additional services at this time and feels safe returning to previous environment. Patient denies hospitalization within the past 30 days. Patient denies the use of community resources CONDENSER TUBE TENDER. Transportation at time of discharge: safia Pagan. Coverage Notice Reviewer: [id number] - Maty Lux Notice Issued Date-Time: 02/05/2020 9:25 Notice Type: Medicare Outpatient Observation Notice Notice Delivered To: Patient Relationship to Patient: Self Pediatrician/Medical Doctor Name: Chanel Villegas Delivery Method: HAND - Hand Delivered Skyla Days: Prior Verbal Notification: Recipient Understood Notice: Yes Recipient Signature: Yes Med Rec Note Co-signed by Attending: Coverage Notice Comment: KYA signed by patient Reviewer: [id number] Gurinder Lux Notice Issued Date-Time: 02/06/2020 12:33 Notice Type: IM Discharge Notice Notice Delivered To: Patient Relationship to Patient: Self Pediatrician/Medical Doctor Name: Chanel Villegas Delivery Method: HAND - Hand Delivered Skyla Days: Prior Verbal Notification: Recipient Understood Notice: Yes Recipient Signature: Yes Med Rec Note Co-signed by Attending: Coverage Notice Comment: DC IMM Patient Name: CHANEL VILLEGAS Page [phone] at 1247 All edits/amendments must be made on the electronic document DICTATION DATE: 02/06/201246 FEEDER LOADER: RHODA 02/06/20 1247 RPT#: [id number] DC DATE: STATUS: ADM IN [facility] [address] [place] [address] END OF REPORT
--- NOTE | 2020-02-06 12:55 | MORECARE ---
CASE MANAGEMENT DISCHARGE SUMMARY PATIENT: CHANEL VILLEGAS UNIT: [id number] ADM DATE: 02/05/20 AGE: 69 : 50 SEX: F ROOM/BED: D.1649 AUTHOR: ROBERT,DOC PHYSICIAN: REFERRING PHYSICIAN: RON CARRERA MD DATE OF SERVICE: 02/06/20 Discharge Plan Patient Name: CHANEL VILLEGAS Facility: [facility]:[place] : 1950 Planned Disposition: Home Anticipated Discharge Date: 02/06/20 Discharge Date: Expected LOS: 1 Initial Reviewer: [email or web address] Initial Review Date: 02/05/2020 Generated: 02/06/20 1:54 pm Comments DCP- Discharge Planning Updated by [email or web address]: Maty Lux on 02/06/20 11:[address] CM met with patient to discuss initial discharge planning. Patient is in agreement to proceed with the assessment. Patient reports that she lives at home independently with her two sons. Patient states that her sons assist her in her care. Patient is alert/oriented. Stairs/steps: 2, w/rails. PCP: Dr. Morales. Pharmacy: [facility], next to [facility]. Patient states she has been able to obtain all of her prescribed medications. HHS: Declines. Patient signed a denial for HHS. DME: 2 C-Pap's, walker, electric/c, glucometer, shower chair. Patient gives permission to speak with family members/care givers. Emergency contact: Ej Villegas (son) [phone]. 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 CM discussed the availability of HH, Rehab, SNF, OP Therapy, DME services. Patient denies the need for additional services at this time and feels safe returning to previous environment. Patient denies hospitalization within the past 30 days. Patient denies the use of community resources MILITARY POLICE OFFICER. Transportation at time of discharge: safia Pagan. DCPIA - Discharge Planning Initial Assessment Updated by [email or web address]: Maty Lux on 02/06/20 12:49 pm * Is the patient Alert and Oriented? Yes * How many steps to enter\exit or inside your home? 2 w/rail * PCP Dr. Morales * [facility]acy [facility] * Preadmission Environment Home with Family * ADLs Partial Dependent * Partial ADLs (Assistance needed) Bathing Dressing Medication Management Toileting * Equipment CPAP * Other Equipment Portable O2, O2 HS, C-pap X2, RW, Battery operated w/c, glucometer * List name and contact numbers for known caregivers / representatives who currently or will assist patient after discharge: Ej Villegas (son) [phone] * Verbal permission to speak to the caregivers and representatives has been obtained from the patient. Yes * Community resources currently utilized None * Please name any agencies selected above. Declines * Additional services required to return to the preadmission environment? No * Can the patient safely return to the preadmission environment? Yes * Has this patient been hospitalized within the prior 30 days at any hospital? Yes Coverage Notice Reviewer: [id number] Gurinder Lux Notice Issued Date-Time: 02/05/2020 9:25 Notice Type: Medicare Outpatient Observation Notice Notice Delivered To: Patient Relationship to Patient: Self Certifed Refrigeration Operator Name: Chanel Villegas Delivery Method: HAND - Hand Delivered Skyla Days: Prior Verbal Notification: Recipient Understood Notice: Yes Recipient Signature: Yes Med Rec Note Co-signed by Attending: Coverage Notice Comment: BOLAND signed by patient Reviewer: [id number] Gurinder Lux Notice Issued Date-Time: 02/06/2020 12:33 Notice Type: IM Discharge Notice Notice Delivered To: Patient Relationship to Patient: Self Certifed Refrigeration Operator Name: Chanel Villegas Delivery Method: HAND - Hand Delivered Skyla Days: Prior Verbal Notification: Recipient Understood Notice: Yes Recipient Signature: Yes Med Rec Note Co-signed by Attending: Coverage Notice Comment: DC IMM Last DP export: 02/06/20 11:47 am Patient Name: CHANEL VILLEGAS Page [phone] at 1255 All edits/amendments must be made on the electronic document DICTATION DATE: 02/06/20 1254 SHEET METAL SHOP SUPERVISOR: RHODA 02/06/20 1254 RPT#: [id number] DC DATE: STATUS: ADM IN [facility] [address] [place] [address] END OF REPORT
--- NOTE | 2020-02-06 13:19 | MORECARE ---
CASE MANAGEMENT DISCHARGE SUMMARY PATIENT: CHANEL VILLEGAS UNIT: [id number] ADM DATE: 02/05/20 AGE: 69 : 50 SEX: F ROOM/BED: D.8098 AUTHOR: ROBERT,DOC PHYSICIAN: REFERRING PHYSICIAN: RON CARRERA MD DATE OF SERVICE: 02/06/20 Discharge Plan Patient Name: CHANEL VILLEGAS Facility: [facility]:[place] : 1950 Planned Disposition: Home Anticipated Discharge Date: 02/06/20 Discharge Date: Expected LOS: 1 Initial Reviewer: [email or web address] Initial Review Date: 02/05/2020 Generated: 02/06/20 2:18 pm Comments DCP- Discharge Planning Updated by [email or web address]: Maty Lux on 02/06/20 11:[address] CM met with patient to discuss initial discharge planning. Patient is in agreement to proceed with the assessment. Patient reports that she lives at home independently with her two sons. Patient states that her sons assist her in her care. Patient is alert/oriented. Stairs/steps: 2, w/rails. PCP: Dr. Morales. Pharmacy: [facility], next to [employer]. Patient states she has been able to obtain all of her prescribed medications. HHS: Declines. Patient signed a denial for HHS. DME: 2 C-Pap's, walker, electric/c, glucometer, shower chair. Patient gives permission to speak with family members/care givers. Emergency contact: Ej Villegas (son) [phone]. Patient is partially dependent with all ADL's, medication management BAGGAGEMAN. CM discussed the availability of HH, Rehab, SNF, OP Therapy, DME services. Patient denies the need for additional services at this time and feels safe returning to previous environment. Patient denies hospitalization within the past 30 days. Patient denies the use of community resources BAGGAGEMAN. Transportation at time of discharge: safia Pagan. DCPIA - Discharge Planning Initial Assessment Updated by [email or web address]: Maty Lux on 02/06/20 12:49 pm * Is the patient Alert and Oriented? Yes * How many steps to enter\exit or inside your home? 2 w/rail * PCP Dr. Morales * [facility]acy [facility] * Preadmission Environment Home with Family * ADLs Partial Dependent * Partial ADLs (Assistance needed) Bathing Dressing Medication Management Toileting * Equipment CPAP * Other Equipment Portable O2, O2 HS, C-pap X2, RW, Battery operated w/c, glucometer * List name and contact numbers for known caregivers / representatives who currently or will assist patient after discharge: Ej Villegas (son) [phone] * Verbal permission to speak to the caregivers and representatives has been obtained from the patient. Yes * Community resources currently utilized None * Please name any agencies selected above. Declines * Additional services required to return to the preadmission environment? No * Can the patient safely return to the preadmission environment? Yes * Has this patient been hospitalized within the prior 30 days at any hospital? Yes Coverage Notice Reviewer: [id number] Lux Notice Issued Date-Time: 02/05/2020 9:25 Notice Type: Medicare Outpatient Observation Notice Notice Delivered To: Patient Relationship to Patient: Self Dermatology Nurse Name: Chanel Villegas Delivery Method: HAND - Hand Delivered Skyla Days: Prior Verbal Notification: Recipient Understood Notice: Yes Recipient Signature: Yes Med Rec Note Co-signed by Attending: Coverage Notice Comment: BOLAND signed by patient Reviewer: [id number] Lux Notice Issued Date-Time: 02/06/2020 12:33 Notice Type: IM Discharge Notice Notice Delivered To: Patient Relationship to Patient: Self Dermatology Nurse Name: Chanel Villegas Delivery Method: HAND - Hand Delivered Skyla Days: Prior Verbal Notification: Recipient Understood Notice: Yes Recipient Signature: Yes Med Rec Note Co-signed by Attending: Coverage Notice Comment: DC IMM Reviewer: [id number] Gurinder Lux Notice Issued Date-Time: 02/06/2020 13:10 Notice Type: Patient Choice Letter Notice Delivered To: Patient Relationship to Patient: Self Dermatology Nurse Name: Chanel Villegas Delivery Method: HAND - Hand Delivered Skyla Days: Prior Verbal Notification: Recipient Understood Notice: Yes Recipient Signature: Yes Med Rec Note Co-signed by Attending: Coverage Notice Comment: Patient signed to decline HHS Last DP export: 02/06/20 11:55 am Patient Name: CHANEL VILLEGAS Page [phone] at 1319 All edits/amendments must be made on the electronic document DICTATION DATE: 02/06/201317 UKE OPERATOR: RHODA 02/06/201317 RPT#: [id number] DC DATE: STATUS: ADM IN [facility] [address] [place] [address] END OF REPORT
--- NOTE | 2020-02-06 15:01 | NUR ---
IV AND TELEMETRY DCD. DC PLANS GIVEN. UNDERSTANDING VOICED. ESCORTED TO CAR BY W/C.
--- NOTE | 2020-02-06 16:42 | MORECARE ---
CASE MANAGEMENT DISCHARGE SUMMARY PATIENT: CHANEL VILLEGAS UNIT: [id number] ADM DATE: 02/05/20 AGE: 69 : 50 SEX: F ROOM/BED: D.2939 AUTHOR: ROBERT,DOC PHYSICIAN: REFERRING PHYSICIAN: RON CARRERA MD DATE OF SERVICE: 02/06/20 Discharge Plan Patient Name: CHANEL VILLEGAS Facility: [facility]:[place] : 1950 Planned Disposition: Home Anticipated Discharge Date: 02/06/20 Discharge Date: 02/06/2020 Expected LOS: 1 Initial Reviewer: [email or web address] Initial Review Date: 02/05/2020 Generated: 02/06/20 5:41 pm Comments DCP- Discharge Planning Updated by [email or web address]: Maty Lux on 02/06/20 11:[address] CM met with patient to discuss initial discharge planning. Patient is in agreement to proceed with the assessment. Patient reports that she lives at home independently with her two sons. Patient states that her sons assist her in her care. Patient is alert/oriented. Stairs/steps: 2, w/rails. PCP: Dr. Morales. Pharmacy: [facility], next to [facility]. Patient states she has been able to obtain all of her prescribed medications. HHS: Declines. Patient signed a denial for HHS. DME: 2 C-Pap's, walker, electric/c, glucometer, shower chair. Patient gives permission to speak with family members/care givers. Emergency contact: Ej Villegas (son) [phone]. Patient is partially dependent with all ADL's, medication management BRAKE OPERATOR HEAVY DUTY. CM discussed the availability of HH, Rehab, SNF, OP Therapy, DME services. Patient denies the need for additional services at this time and feels safe returning to previous environment. Patient denies hospitalization within the past 30 days. Patient denies the use of community resources BRAKE OPERATOR HEAVY DUTY. Transportation at time of discharge: safia Pagan. DCPIA - Discharge Planning Initial Assessment Updated by [email or web address]: Maty Lux on 02/06/20 12:49 pm * Is the patient Alert and Oriented? Yes * How many steps to enter\exit or inside your home? 2 w/rail * PCP Dr. Morales * [facility] * Preadmission Environment Home with Family * ADLs Partial Dependent * Partial ADLs (Assistance needed) Bathing Dressing Medication Management Toileting * Equipment CPAP * Other Equipment Portable O2, O2 HS, C-pap X2, RW, Battery operated w/c, glucometer * List name and contact numbers for known caregivers / representatives who currently or will assist patient after discharge: Ej Villegas (son) [phone] * Verbal permission to speak to the caregivers and representatives has been obtained from the patient. Yes * Community resources currently utilized None * Please name any agencies selected above. Declines * Additional services required to return to the preadmission environment? No * Can the patient safely return to the preadmission environment? Yes * Has this patient been hospitalized within the prior 30 days at any hospital? Yes Coverage Notice Reviewer: [id number] Gurinder Lux Notice Issued Date-Time: 02/05/2020 9:25 Notice Type: Medicare Outpatient Observation Notice Notice Delivered To: Patient Relationship to Patient: Self Enthone Solder Stripper Name: Chanel Villegas Delivery Method: HAND - Hand Delivered Sklya Days: Prior Verbal Notification: Recipient Understood Notice: Yes Recipient Signature: Yes Med Rec Note Co-signed by Attending: Coverage Notice Comment: BOLAND signed by patient Reviewer: [id number] Lux Notice Issued Date-Time: 02/06/2020 12:33 Notice Type: IM Discharge Notice Notice Delivered To: Patient Relationship to Patient: Self Enthone Solder Stripper Name: Chanel Villegas Delivery Method: HAND - Hand Delivered Skyla Days: Prior Verbal Notification: Recipient Understood Notice: Yes Recipient Signature: Yes Med Rec Note Co-signed by Attending: Coverage Notice Comment: DC IMM Reviewer: [id number] Gurinder Lux Notice Issued Date-Time: 02/06/2020 13:10 Notice Type: Patient Choice Letter Notice Delivered To: Patient Relationship to Patient: Self Enthone Solder Stripper Name: Chanel Villegas Delivery Method: HAND - Hand Delivered Skyla Days: Prior Verbal Notification: Recipient Understood Notice: Yes Recipient Signature: Yes Med Rec Note Co-signed by Attending: Coverage Notice Comment: Patient signed to decline HHS Last DP export: 02/06/20 12:18 pm Patient Name: CHANEL VILLEGAS Page [phone] at 1642 All edits/amendments must be made on the electronic document DICTATION DATE: 02/06/201640 AUDIO VISUAL AIDS DIRECTOR: RHODA 02/06/201640 RPT#: [id number] DC DATE:02/06/20 STATUS: DIS IN [facility] [address] [place] [address] END OF REPORT
--- NOTE | 2020-02-07 11:30 | CN ---
PATIENT NAME:CHANEL VILLEGAS MEDICAL RECORD: [id number] : 50 LOCATION:DRemigio D.2115 ADMIT DATE: 02/05/20 ACCOUNT: [id number] CONSULTING PHYSICIAN: RON SOTOMAYOR MD REFERRING PHYSICIAN: RON CARRERA MD DATE OF CONSULTATION: 02/05/2020 HISTORY OF PRESENT ILLNESS: A 69-year-old female with history of coronary artery disease, status post recent stenting to right coronary has a history for recent noncompliance with her Plavix, states some doctor told her she does not need it, admitted with chest pain, simply been ruled in for NSTEMI. We are asked to see her concerning her cardiovascular status. PAST MEDICAL HISTORY: Includes: 1. History of coronary artery disease, status post intervention. 2. Hypertension. 3. Hyperlipidemia. 4. Sick sinus syndrome, PAF, status post permanent pacemaker placement. 5. Obstructive pulmonary disease. ALLERGIES: INCLUDE METOPROLOL, IMDUR, AND PENICILLIN. MEDICATIONS: Include Proventil 2 puffs q.4 p.r.n., NicoDerm 21 mg p.o. q. day, Plavix 75 q. day, Xarelto 10 q. day, amlodipine 10 at bedtime, losartan 100 q. day, pravastatin 20 q. day, aspirin 81 q. day, Prevacid 30 q. day, insulin per scale, Synthroid 50 mcg q. day. SOCIAL HISTORY: Continues to smoke. Nondrinker. Has good family support. Some problems with ADLs due to chronic illness. REVIEW OF SYSTEMS: The patient reports easy bruising but reports no swollen glands. The patient reports no fever, no night sweats, no significant weight gain, no significant weight loss. No significant exercise tolerance. The patient reports no dry eyes, no irritation, no vision change. Patient reports no difficulty hearing and no ear pain. Patient reports no frequent nose bleeds or nose and sinus problems. Patient reports no arm pain on exertion. No shortness of breath while lying down. No history of heart murmur. Patient reports no cough, no wheezing or coughing up blood. Patient reports no abdominal pain, no vomiting. Normal appetite. No diarrhea and not vomiting blood. No nausea and no constipation. Patient reports no incontinence. No difficulty urinating. No hematuria. No increased frequency. Patient reports no muscle aches. No weakness, no arthralgias, no back pain. No swelling of the extremities. Patient reports no abnormal mole, no jaundice, no rashes. Reports no loss of consciousness. No weakness and no numbness. No seizures, dizziness, or headaches. The patient reports no depression, no sleep disturbance, feeling safe in a relationship and no alcohol abuse. Patient reports no fatigue. Reports no runny nose or sinus pressure. No itching, no hives, and no frequent sneezing. PHYSICAL EXAMINATION: GENERAL: Chronically ill appearing, in no acute distress. VITAL SIGNS: 142/68, pulse 70 and regular. HEENT: Normocephalic, atraumatic. NECK: No bruits noted. HEART: Regular. A II/ systolic ejection murmur. CONSULT REPORT [id number] CHANEL VILLEGAS LUNGS: Prolonged respiratory phase with a few expiratory wheezes. ABDOMEN: Soft, nontender. EXTREMITIES: Pulses 2+. No edema. IMPRESSION: NSTEMI, concern obviously stent thrombosis, at least threatened stent thrombosis secondary to medication noncompliance. PLAN: For angiography, intervention based on above. NTS:[id number] Voice Confirmation ID: [id number] DOCUMENT ID: [id number] RON SOTOMAYOR MD at 1130 CC: [id number] DICTATION DATE: 02/05/20 1123 NEW CLIENT BANKING SERVICES CLERK: 02/06/20 0236 DIS IN 02/06/20 [id number] [place] [address]
--- NOTE | 2020-02-07 11:30 | EC ---
PATIENT:CHANEL VILLEGAS DATE OF SERVICE: 02/05/20 SEX: F MEDICAL RECORD: [id number] DATE OF : 50 LOCATION:D.M2 D.211 AGE OF PATIENT: 69 ADMISSION DATE: 02/05/20 REFERRING PHYSICIAN: INTERPRETING PHYSICIAN: RON SOTOMAYOR MD ECHOCARDIOGRAM REPORT ECHO CHARGES 4 ECHO COMPLETE Date: 02/05/20 CLINICAL DIAGNOSIS: CP, HX: CAD ECHOCARDIOGRAPHIC MEASUREMENTS (adult normal given) AC root (d.<3.7cm) 2.8 cm LV Septum d (<1.2 cm> 1.2 cm Valve Excursion 1.7 cm LV Septum (systole) 1.9 cm Left Atria (s.<4.0cm> 2.8 cm LVPW d(<1.2cm) 1.1 cm RV (d.<2.3cm) 2.7 cm LVPW (sytole) 1.5 cm LV diastole(<5.6CM) 4.8 cm MV E-F(>70mm/sec) cm LV systole 3.1 cm LVOT Diameter 1.8 cm MV exc.(>10mm) cm Est.ejection fraction (50-75%) % DOPPLER: LVIT cm/sec A 65 cm/sec E 91 cm/sec LA cm/sec RVSP 30.3 mmHg LVOT 72 cm/sec AOP1/2T m/s Asc. Ao 117 cm/sec RVOT 67 cm/sec RA cm/sec PA 81 cm/sec AV Gradient Peak 5.5 mmHg AV Mean 2.5 mmHg AV Area 1.7 cm MV Gradient Peak 3.7 mmHg MV Mean 1.5 mmHg MV Area cm COMMENTS: Guest Experience Captain: Julien QUINTERO Matrix Bath Operator: 3 Dr. Spring TAPE# PACS Pericardial Effusion N DATE OF SERVICE: 02/06/2020 Adequate 2D, color flow imaging, spectral Doppler, and M-Mode. LVH is present. LV internal dimensions are normal. Wall motion shows mild inferobasilar hypokinesis, LV function upper limits of normal at 50%. Aortic valve sclerosis without stenosis by Doppler interrogation. Left atrium is normal. Mitral valve shows no prolapse. Trace MR. Right-sided chambers are grossly normal. Mild TR. ECHOCARDIOGRAM REPORT [id number] CHANEL VILLEGAS TRANSINT:[id number] Voice Confirmation ID: [id number] DOCUMENT ID: [id number] RON SOTOMAYOR MD at 1130 CC: [id number] DICTATION DATE: 02/06/20830 LEAD PROGRAMMER: 02/06/20 1151 DIS IN 02/06/20 [facility] [address] [place] [id number]
--- NOTE | 2020-02-07 11:30 | OP ---
PATIENT NAME: CHANEL VILLEGAS MEDICAL RECORD: [id number] :50 LOCATION:D.M2 D.2115 ADMISSION DATE:02/05/20 SURGEON: RON SOTOMAYOR MD DATE OF OPERATION: 02/05/2020 PROCEDURE: Left heart catheterization, selective coronary angiography, right femoral artery approach. CATHETERS: A 5-German sheath, 5/4 left and right Marnie, 5/4 pig. The procedure was well tolerated. We proceeded to do a PTCA of right coronary. FINDINGS: Left ventriculography in 30-degree TRUJILLO shows inferior, typically inferior hypokinesis. LV function mildly reduced at 40%. CORONARY ANATOMY: LEFT MAIN: Free of disease. LAD: No progression of [place] disease. CIRCUMFLEX: No progression of [place] disease. RIGHT CORONARY ARTERY: Totally occluded consistent with acute stent thrombosis consistent with noncompliance with Plavix. PLAN: Intervention momentarily. DESCRIPTION OF PROCEDURE: A 5-German sheath was exchanged for a 6-German sheath. A hockey stick guiding catheter provided excellent guide catheter support followed by 300 cm Whisper wire. We took a 3.0 x 20 mm balloon and went up and down this vessel and created a small channel. Next, we used systemic and intracoronary Integrilin as well as intracoronary nitroglycerin. IMPRESSION: Acute stent thrombosis secondary to noncompliance with reopening via balloon. We will continue Integrilin overnight and hopefully clear out the distal small vasculature. NTS:[id number] Voice Confirmation ID: [id number] DOCUMENT ID: [id number] RON SOTOMAYOR MD at 1130 CC: [id number] DICTATION DATE: 02/05/20 1219 REPORT SPECIALIST: 02/06/20 0046 DIS IN 02/06/20 [facility] [address] [place] [address]
== END 2020-02-06 15:01 | disposition home or self-care (01) | DRG 250 ==
LOC: D.ER 21:16 → D.M2 23:21 → OBSVTIME 02-05 06:00 → D.M2 02-05 18:12
PROVIDERS: Family Medicine; Internal Medicine Interventional Cardiology; ADMIT Family Medicine; ATTEND Family Medicine
PROC: B2111ZZ Fluoroscopy of Multiple Coronary Arteries using Low Osmolar Contrast (ICD-10-PCS; 2020-02-05)
PROC: B2151ZZ Fluoroscopy of Left Heart using Low Osmolar Contrast (ICD-10-PCS; 2020-02-05)
PROC: 02703ZZ Dilation of Coronary Artery, One Artery, Percutaneous Approach (ICD-10-PCS; principal; 2020-02-05 11:15)
PROC: 4A023N7 Measurement of Cardiac Sampling and Pressure, Left Heart, Percutaneous Approach (ICD-10-PCS; 2020-02-05 11:15)
DX: T82.855A Stenosis of coronary artery stent, initial encounter (principal); I21.A1 Myocardial infarction type 2; E87.1 Hypo-osmolality and hyponatremia; Y83.9 Surgical procedure, unspecified as the cause of abnormal reaction of the patient, or of later complication, without mention of misadventure at the time of the procedure; I25.10 Atherosclerotic heart disease of native coronary artery without angina pectoris; I10 Essential (primary) hypertension; E78.5 Hyperlipidemia, unspecified; E83.42 Hypomagnesemia; E11.40 Type 2 diabetes mellitus with diabetic neuropathy, unspecified; J44.9 Chronic obstructive pulmonary disease, unspecified; K21.9 Gastro-esophageal reflux disease without esophagitis; K76.0 Fatty (change of) liver, not elsewhere classified; I48.91 Unspecified atrial fibrillation; F41.8 Other specified anxiety disorders; L40.9 Psoriasis, unspecified; Z79.01 Long term (current) use of anticoagulants; Z86.718 Personal history of other venous thrombosis and embolism; Z72.0 Tobacco use

== ENCOUNTER 2020-03-25 11:52 | Inpatient (IN) | payer MEDICARE, OTHER ==
[~2020-03-25] VITALS: Ht 160 cm; Wt 103.9 kg
[~2020-03-25 11:52] MED LIST changes: +NICODERM CQ1 EAC3 TRANSDERM
[2020-03-25] MEDS ORDERED: PRAVACHOL40 MG PO (12:08)
[2020-03-25] MEDS ORDERED: AVAPRO300 MG PO (12:09)
[2020-03-25] MEDS ORDERED: CREON (PANCRELI1 CAP PO (12:10)
[2020-03-25] MEDS ORDERED: METOLAZONE2.5 MG PO (12:11)
[2020-03-25] MEDS ORDERED: DIGOXIN250 MCG PO (12:11)
[2020-03-25 12:15] VITALS: BP 120/60
--- NOTE | 2020-03-25 12:17 | NUR ---
ASPRIN GIVEN. PT REPORTS SHE IS ALLERGIC
[2020-03-25 12:20] LABS: BASOPHILS 0.3 % (0-2); EOSINOPHILS 0.5 % (0-7); HEMATOCRIT 29.5 % (36.0-48.0); HEMOGLOBIN 8.4 g/dL (12-16); IMMATURE GRANULOCYTES 0.3 % (0-5); MCH 20.9 pg (26.0-34.0); MCHC 28.5 g/dL (31.0-37.0); MCV 73.6 fL (80.0-100.0); MEAN PLATELET VOLUME 10.1 fL (7.4-10.4); MONOCYTES 8.1 % (2-11); NEUTROPHILS 73.8 % (40-80); PLATELET COUNT 235 10x3/uL (130-400); RBC 4.01 10x6/uL (4.00-5.40); RDW 17.7 % (11.5-14.5); WBC 7.9 10x3/uL (4.8-10.8)
[2020-03-25 12:30] LABS: CALC OSMOLALITY 282 mosm/kg (275-300); CARBON DIOXIDE 29.5 mmol/L (21.0-32.0); CHLORIDE - SERUM 97 mmol/L (98-107); CREATININE - SERUM 0.7 mg/dL (0.6-1.3); SODIUM 135 mmol/L (136-145); UREA NITROGEN 8 mg/dL (7-18); eGFR NON AFRICAN AMERICAN 88 mL/min (90-120)
[2020-03-25 12:38] LABS: GLUCOSE 368 mg/dL (74-106)
[2020-03-25 12:40] LABS: APTT 28.6 SECONDS (22.8-39.4); INR 1.21 (0.85-1.17); PROTIME 15.2 SECONDS (11.6-15.0)
[2020-03-25 12:47] LABS: ALBUMIN 2.8 g/dL (3.4-5.0); ALKALINE PHOSPHATASE 112 U/L (30-120); ALT (SGPT) 13 U/L (10-68); BILIRUBIN - TOTAL 0.52 mg/dL (0.2-1.3); CKMB 0.9 U/L (0.0-3.6); CREATINE KINASE 35 UL (21-215); MAGNESIUM - SERUM 1.4 mg/dL (1.8-2.4); PROTEIN - SERUM 6.5 g/dL (6.4-8.2); TROPONIN-I 0.022 ng/mL (0.000-0.060)
[2020-03-25 12:53] LABS: AMYLASE - SERUM 26 U/L (25-115); LIPASE 83 U/L (73-393)
--- NOTE | 2020-03-25 14:56 | NUR ---
OCCULT STOOL NEGATIVE
[2020-03-25 16:24] VITALS: BP 145/80
--- NOTE | 2020-03-25 16:30 | NUR ---
PT PROVIDED WITH MEAL TRAY
--- NOTE | 2020-03-25 16:59 | NUR ---
PT DENIES PAIN. REPORTS THAT SHE DOES NOT WANT PAIN MEDS AT THIS TIME.
[2020-03-25 17:24] VITALS: BP 161/71
--- NOTE | 2020-03-25 17:25 | NUR ---
PT LAYING IN BED. NO DISTRESS NOTED. VSS. COLOR WNL FOR RACE. RESPIRATIONS ARE EVEN AND UNLABORED. WILL CONTINUE TO MONITOR PATIENT.
[2020-03-25 18:23] LABS: % SATURATION 2 % (15-55); IRON 16 ug/dl (35-150); TOTAL IRON BIND CAPACITY 538 ug/dl (260-445)
[2020-03-25 18:27] LABS: UNSAT IRON BIND CAPACITY 522 ug/dl (150-375)
[2020-03-25 19:07] VITALS: BP 161/71; BMI 40.6
[2020-03-25 20:00] VITALS: BP 132/72
[2020-03-25 20:35] LABS: CKMB 0.9 U/L (0.0-3.6); CREATINE KINASE 37 UL (21-215); TROPONIN-I 0.049 ng/mL (0.000-0.060)
[2020-03-26 01:46] LABS: CKMB 0.9 U/L (0.0-3.6); CREATINE KINASE 37 UL (21-215)
[2020-03-26 01:47] LABS: TROPONIN-I 0.129 ng/mL (0.000-0.060)
--- NOTE | 2020-03-26 06:43 | NUR ---
NO TELEMETRY AVAILABLE. CHARGE NURSE NOTIFIED.
[2020-03-26 06:54] LABS: BASOPHILS 0.8 % (0-2); EOSINOPHILS 1.8 % (0-7); HEMATOCRIT 28.8 % (36.0-48.0); HEMOGLOBIN 8.3 g/dL (12-16); IMMATURE GRANULOCYTES 0.1 % (0-5); LYMPHOCYTES 34.5 % (15-50); MCHC 28.8 g/dL (31.0-37.0); MCV 72.9 fL (80.0-100.0); MEAN PLATELET VOLUME 10.2 fL (7.4-10.4); MONOCYTES 10.6 % (2-11); NEUTROPHILS 52.2 % (40-80); PLATELET COUNT 248 10x3/uL (130-400); RBC 3.95 10x6/uL (4.00-5.40); RDW 17.7 % (11.5-14.5); WBC 7.7 10x3/uL (4.8-10.8)
[2020-03-26 07:22] LABS: ALBUMIN 2.6 g/dL (3.4-5.0); ALKALINE PHOSPHATASE 99 U/L (30-120); ALT (SGPT) 13 U/L (10-68); BILIRUBIN - TOTAL 0.37 mg/dL (0.2-1.3); CALCIUM 8.9 mg/dL (8.5-10.1); CARBON DIOXIDE 30.7 mmol/L (21.0-32.0); CHLORIDE - SERUM 97 mmol/L (98-107); CREATINE KINASE 35 UL (21-215); CREATININE - SERUM 0.7 mg/dL (0.6-1.3); MAGNESIUM - SERUM 1.5 mg/dL (1.8-2.4); PROTEIN - SERUM 6.7 g/dL (6.4-8.2); SODIUM 133 mmol/L (136-145); eGFR NON AFRICAN AMERICAN 88 mL/min (90-120)
[2020-03-26 08:05] LABS: CALC OSMOLALITY 272 mosm/kg (275-300); GLUCOSE 212 mg/dL (74-106); POTASSIUM - SERUM 2.9 mmol/L (3.5-5.1); TROPONIN-I 0.154 ng/mL (0.000-0.060); UREA NITROGEN 14 mg/dL (7-18)
[2020-03-26 08:22] VITALS: BP 122/76
[2020-03-26 12:23] VITALS: BP 144/69
[2020-03-26 12:37] VITALS: Ht 160 cm; Wt 103.9 kg
--- NOTE | 2020-03-26 14:00 | NUR ---
PRE-OPS GIVEN. TO GI LAB FOR EGD. WILL MONITOR.
--- NOTE | 2020-03-26 15:03 | NUR ---
BACK FROM GI LAB. DIET RESUMED.
[2020-03-26 15:24] VITALS: BP 133/63
--- NOTE | 2020-03-26 15:31 | NUR ---
URINE SPECIMEN COLLECTED AND TAKEN TO LAB. WILL MONITOR.
[2020-03-26 15:39] LABS: BACTERIA MANY HPF (NONE SEEN); BILIRUBIN NEGATIVE (NEGATIVE); KETONE NEGATIVE (NEGATIVE); NITRITE NEGATIVE (NEGATIVE); UROBILINOGEN NORMAL mg/dL (< 2); WHITE CELLS - URINE 25-50 HPF (0-4)
--- NOTE | 2020-03-26 15:46 | NUR ---
1 UNIT PRBC STARTED. VS WNL. LINE IS PATENT.
[2020-03-26 20:22] VITALS: BP 138/75
[2020-03-27 00:32] VITALS: BP 123/71
[2020-03-27 04:30] VITALS: BP 144/76
[2020-03-27 06:24] LABS: ALBUMIN 2.5 g/dL (3.4-5.0); ALKALINE PHOSPHATASE 101 U/L (30-120); ALT (SGPT) 10 U/L (10-68); BILIRUBIN - TOTAL 0.27 mg/dL (0.2-1.3); CALCIUM 8.6 mg/dL (8.5-10.1); CARBON DIOXIDE 28.2 mmol/L (21.0-32.0); CHLORIDE - SERUM 97 mmol/L (98-107); CREATININE - SERUM 0.6 mg/dL (0.6-1.3); MAGNESIUM - SERUM 1.6 mg/dL (1.8-2.4); PROTEIN - SERUM 6.5 g/dL (6.4-8.2); SODIUM 133 mmol/L (136-145); UREA NITROGEN 11 mg/dL (7-18); eGFR NON AFRICAN AMERICAN > 90 mL/min (90-120)
[2020-03-27 06:27] LABS: CALC OSMOLALITY 273 mosm/kg (275-300); GLUCOSE 264 mg/dL (74-106)
[2020-03-27 06:29] LABS: POTASSIUM - SERUM 2.9 mmol/L (3.5-5.1)
[2020-03-27 06:36] LABS: BASOPHILS 0.5 % (0-2); EOSINOPHILS 1.6 % (0-7); HEMATOCRIT 30.9 % (36.0-48.0); HEMOGLOBIN 8.9 g/dL (12-16); IMMATURE GRANULOCYTES 0.3 % (0-5); LYMPHOCYTES 29.4 % (15-50); MCH 21.3 pg (26.0-34.0); MCHC 28.8 g/dL (31.0-37.0); MCV 73.9 fL (80.0-100.0); MEAN PLATELET VOLUME 10.3 fL (7.4-10.4); MONOCYTES 10.9 % (2-11); NEUTROPHILS 57.3 % (40-80); PLATELET COUNT 222 10x3/uL (130-400); RBC 4.18 10x6/uL (4.00-5.40); RDW 18.1 % (11.5-14.5); WBC 7.5 10x3/uL (4.8-10.8)
[2020-03-27 09:27] VITALS: BP 133/61
--- NOTE | 2020-03-27 10:50 | NUR ---
1 UNIT PRBC STARTED. VS WNL. LINE IS PATENT.
[2020-03-27 13:00] VITALS: BP 141/80
--- NOTE | 2020-03-27 13:58 | NUR ---
BLOOD COMPLETED WITHOUT ADVERSE REACTIONS NOTED.
[2020-03-27 14:07] LABS: HEMATOCRIT 35.4 % (36.0-48.0); HEMOGLOBIN 10.3 g/dL (12-16)
[2020-03-27] MEDS ORDERED: NICODERM CQ1 EAC3 TOPICAL (15:03)
--- NOTE | 2020-03-27 15:44 | NUR ---
IV AND TELEMETRY DCD. DC PLANS GIVEN. UNDERSTANDING VOICED. ESCORTED TO CAR BY W/C.
--- NOTE | 2020-03-29 14:27 | MORECARE ---
CASE MANAGEMENT DISCHARGE SUMMARY PATIENT: CHANEL VILLEGAS UNIT: [id number] ADM DATE: 03/26/20 AGE: 69 : 50 SEX: F ROOM/BED: D.3974 AUTHOR: YOLANDA JONES PHYSICIAN: REFERRING PHYSICIAN: LISANDRA KIDD DO DATE OF SERVICE: 03/29/20 Discharge Plan Patient Name: CHANEL VILLEGAS [facility] [facility] 1950 Planned Disposition: Anticipated Discharge Date: Discharge Date: 03/27/2020 Expected LOS: 0 Initial Reviewer: [email or web address] Initial Review Date: 03/29/2020 Generated: 03/29/20 3:26 pm Coverage Notice Reviewer: [id number] Gurinder Mead Notice Issued Date-Time: 03/26/2020 10:30 Notice Type: Medicare Outpatient Observation Notice Notice Delivered To: Patient Relationship to Patient: Self Assistant [employer] Name: Delivery Method: HAND - Hand Delivered Skyla Days: Prior Verbal Notification: Recipient Understood Notice: Yes Recipient Signature: Yes Med Rec Note Co-signed by Attending: Coverage Notice Comment: BOLAND SERVED, EXPLAINED, AND SIGNED BY PATIENT. THE ORIGINAL WAS PROVIDED TO THE PATIENT AND COPY PLACED ON CHART. Patient Name: CHANEL VILLEGAS Page [id number] at 1427 All edits/amendments must be made on the electronic document DICTATION DATE: 03/29/20 142 [employer] SERVICES LIBRARIAN: RHODA 03/29/20 1427 RPT#: [id number] DC DATE:03/27/20 STATUS: DIS IN [facility] [address] [place] [address] END OF REPORT
== END 2020-03-27 15:45 | disposition home or self-care (01) | DRG 392 ==
LOC: D.ER 11:52 → D.M2 14:09 → D.EDHOLD 14:09 → OBSVTIME 14:09 → EDBD 14:09 → D.EDHOLD 14:09 → D.M2 18:37
PROVIDERS: Family Medicine; Internal Medicine Gastroenterology; ADMIT Family Medicine; ATTEND Family Medicine
PROC: 0DJ08ZZ Inspection of Upper Intestinal Tract, Via Natural or Artificial Opening Endoscopic (ICD-10-PCS; principal; 2020-03-26 14:15)
DX: K21.0 Gastro-esophageal reflux disease with esophagitis (principal); E87.1 Hypo-osmolality and hyponatremia; F17.203 Nicotine dependence unspecified, with withdrawal; I42.9 Cardiomyopathy, unspecified; I25.10 Atherosclerotic heart disease of native coronary artery without angina pectoris; D50.9 Iron deficiency anemia, unspecified; E11.65 Type 2 diabetes mellitus with hyperglycemia; E87.6 Hypokalemia; E11.40 Type 2 diabetes mellitus with diabetic neuropathy, unspecified; I10 Essential (primary) hypertension; I48.91 Unspecified atrial fibrillation; K76.0 Fatty (change of) liver, not elsewhere classified; J44.9 Chronic obstructive pulmonary disease, unspecified; L40.9 Psoriasis, unspecified; F41.8 Other specified anxiety disorders; K29.70 Gastritis, unspecified, without bleeding